=== PATIENT | female | born 1960 | race Caucasian/White ===

== ENCOUNTER 2017-07-26 09:07 | Inpatient (IN) | payer OTHER ==
[2017-07-26] VITALS (18 sets, daily range): BP systolic 90–146; BP diastolic 46–69; PULSE 75–88; RESP 12–28; Ht 167.6 cm; Wt 110.0 kg
[~2017-07-26] VITALS: Ht 167.6 cm; Wt 110.0 kg
[~2017-07-26 09:07] MED LIST: ACETAMINOPHEN 1000 MG/100 ML IVPB ONE; CEFAZOLIN 1 GM INJ ONE; DIPHENHYDRAMINE 50 MG INJ IV PRN; EPHEDrine SULFATE 50 MG/5 ML SYG ONE; FENTAnyl 50 MCG/ML VIAL IV PRN; HYDROmorphONE (0.2 MG/ML) 10ML SYG IV PRN; MEPERIDINE 25 MG INJ IV PRN; ONDANSETRON 4 MG INJ IV PRN; PROCHLORPERAZINE 10 MG INJ IV PRN; PROPOFOL 200 MG INJ ONE
[2017-07-26] MEDS ORDERED: ASPI81TA3 PO (10:23)
[2017-07-26] MEDS ORDERED: DEXT30DR5 BOTH EYES (10:23)
[2017-07-26] MEDS ORDERED: ATOR20TA38 PO (10:24)
[2017-07-26] MEDS ORDERED: BACL10TA PO (10:24)
[2017-07-26] MEDS ORDERED: BENZ0.5T3 PO (10:25)
[2017-07-26] MEDS ORDERED: CARB100T2 PO (10:26)
[2017-07-26] MEDS ORDERED: DIVA500T7 PO (10:27)
[2017-07-26] MEDS ORDERED: DOCU250C58 PO (10:27)
[2017-07-26] MEDS ORDERED: IPRA3AMP INHALATION (10:28)
[2017-07-26] MEDS ORDERED: IBUP-1542 PO (10:29)
[2017-07-26] MEDS ORDERED: VENL150C PO (10:29)
[2017-07-26] MEDS ORDERED: LACTINEX PO (10:30)
[2017-07-26] MEDS ORDERED: LEVO75TA5 PO (10:41)
[2017-07-26] MEDS ORDERED: LACT20SO2 PO (10:41)
[2017-07-26] MEDS ORDERED: MAGN400O4 PO (10:42)
[2017-07-26] MEDS ORDERED: LOSA100T7 PO (10:42)
[2017-07-26] MEDS ORDERED: PANT40TA4 PO (10:42)
[2017-07-26] MEDS ORDERED: OXYC-209 PO (10:43)
[2017-07-26] MEDS ORDERED: MIRT45TA PO (10:44)
[2017-07-26] MEDS ORDERED: UDROBDM PO (10:44)
[2017-07-26] MEDS ORDERED: QUET400T PO (10:46)
[2017-07-26] MEDS ORDERED: MONT10TA21 PO (10:46)
[2017-07-26] MEDS ORDERED: SODI1TAB2 PO (10:47)
[2017-07-26] MEDS ORDERED: ACET-2047 PO (10:47)
[2017-07-26 10:56] LABS: BASOPHILS % 0.4 % (0.0-2.0); EOSINOPHILS # 0.2 10^3/ul (0.0-0.5); EOSINOPHILS % 2.2 % (0.0-7.0); HEMATOCRIT 35.3 % (37.0-47.0); HEMOGLOBIN 11.9 g/dl (12.0-16.0); LYMPHOCYTES # 2.4 10^3/ul (0.8-2.9); LYMPHOCYTES % 30.4 % (15.0-51.0); MEAN CORPUSCULAR HEMOGLOBIN 33.1 pg (29.0-33.0); MEAN CORPUSCULAR HGB CONC 33.7 g/dl (32.0-37.0); MEAN CORPUSCULAR VOLUME 98.1 fl (82.0-101.0); MEAN PLATELET VOLUME 9.8 fl (7.4-10.4); MONOCYTE # 0.6 10^3/ul (0.3-0.9); MONOCYTES % 8.2 % (0.0-11.0); NEUTROPHILS % 58.4 % (39.0-77.0); PLATELET COUNT 170 10^3/UL (140-415); RED CELL DISTRIBUTION WIDTH 12.9 % (11.5-14.5); WHITE BLOOD COUNT 7.8 10^3/ul (4.8-10.8)
[2017-07-26] MEDS ORDERED: GELATIN SIZE 100 SPONGE ONE (11:24)
[2017-07-26] MEDS ORDERED: THROMBIN 5000 UNIT VIAL ONE (11:24)
[2017-07-26 11:27] LABS: CALCIUM 9.1 mg/dl (8.4-10.2); CREATININE 0.64 mg/dl (0.44-1.00); POTASSIUM 4.6 mmol/L (3.5-5.1)
[2017-07-26 11:44] LABS: INR 0.94; PROTIME 12.6 Sec (12.2-14.2)
[2017-07-26 11:46] LABS: PARTIAL THROMBOPLASTIN TIME 36.6 Sec (25.0-35.0)
[2017-07-26] MEDS ORDERED: LIDOCAINE 2% (SDV) 5 ML INJ ONE (12:04)
[2017-07-26] MEDS ORDERED: PROPOFOL 20 ML ONE (12:04)
[2017-07-26] MEDS ORDERED: FENTAnyl 50 MCG/ML VIAL ONE ×2 (12:05→16:24)
[2017-07-26] MEDS ORDERED: MIDAZOLAM 1 MG/ML 2 ML INJ ONE (12:05)
[2017-07-26] MEDS ORDERED: ROCURONIUM 50 MG INJ ONE ×2 (12:05→14:29)
[2017-07-26] MEDS ORDERED: OCULAR LUBRICANT 3.5 GM OPH OINT ONE (12:10)
[2017-07-26] MEDS ORDERED: PROVENTIL HFA 6.7GM INHALER ONE (12:10)
[2017-07-26] MEDS ORDERED: HEPARIN 1000 UNITS/ML 10 ML INJ ONE (13:13)
[2017-07-26] MEDS ORDERED: NALOXONE (0.4 MG/ML) INJ IV PRN (14:00)
[2017-07-26] MEDS ORDERED: NACL 0.9% 3 ML SYG IV SCH (14:00)
--- NOTE | 2017-07-26 14:00 | OPPN ---
Date/Time of Note Date/Time of Note DATE: 07/26/17 TIME: 1600 Operative Report Free Text/Dictation Pls see Dr. Marte's post op note Preoperative Diagnosis Mechanical Low Back pain with Radiculopathy Postoperative Diagnosis Same STEPHEN FRANCO MD Jul 26, 2017 14:00
[2017-07-26] MEDS ORDERED: LABETALOL HCL 20MG INJ ONE (14:24)
[2017-07-26] MEDS ORDERED: HYDROmorphONE 2 MG/ML SYG ONE (14:27)
[2017-07-26] MEDS ORDERED: CEFAZOLIN 1 GM INJ ONE (14:37)
[2017-07-26] MEDS ORDERED: KETAMINE 500 MG INJ ONE (14:37)
[2017-07-26] MEDS ORDERED: ONDANSETRON 4 MG INJ ONE (14:43)
[2017-07-26] MEDS ORDERED: DEXAMETHASONE 4 MG/ML 1 ML INJ ONE (14:43)
[2017-07-26] MEDS ORDERED: hydrALAzine 20 MG INJ ONE (14:45)
[2017-07-26] MEDS ORDERED: CEFAZOLIN 1 GM INJ ZFS ONE (14:47)
[2017-07-26] MEDS ORDERED: GELATIN SIZE 100 SPONGE TOP ONE (14:48)
[2017-07-26] MEDS ORDERED: THROMBIN 5000 UNIT VIAL TOP ONE (14:50)
[2017-07-26] MEDS ORDERED: HEMOSTATIC MATRIX/ THROMBIN 1 EA SYG ZFS ONE (14:52)
[2017-07-26] MEDS ORDERED: PHENYLephrine (100 MCG/ML) 5ML SYG ONE (15:32)
[2017-07-26] MEDS ORDERED: SUGAMMADEX SODIUM 200 MG/2 ML VIAL IV ONE (15:54)
[2017-07-26] MEDS ORDERED: BUPIVACAINE 0.25% (MPF) 30 ML INJ ONE (15:56)
--- NOTE | 2017-07-26 16:26 | RADRPT ---
PROCEDURE: Lumbar spine single view CLINICAL INDICATION: Intraoperative evaluation for foreign body TECHNIQUE: Single portable AP supine exposure of the lumbar spine is submitted for review COMPARISON: None available FINDINGS: The image is somewhat limited by technical factors and underexposure. Mild scoliotic curvature to t he left centered at the L3-4 level is present with degenerative disk narrowing and spondylosis at L3 -4, L4-5 and L5-S1. Tiny staple like densities project over the sacrum but there is no evidence of obvious additional radiopaque foreign body. Bowel gas pattern is grossly unremarkable. RPTAT:HJJR IMPRESSION: Limited portable intraoperative single lumbar spine image does not demonstrate obvious retained radi opaque foreign body. Physician Zoltan Date Time Electronically viewed and signed by Physician Zoltan on 07/26/2017 16:25 /
[2017-07-26] MEDS: HYDROmorphONE 0.2 MG/ML PCA IV SCH ×2 (17:04→23:14)
[2017-07-26] MEDS ORDERED: BUPIVACAINE 0.25% (MPF) 10 ML 10 ML VIAL INJ ONE (17:16)
[2017-07-26] MEDS: HYDROmorphONE (0.2 MG/ML) 10ML SYG IV PRN ×3 (17:32→18:02)
[2017-07-26] MEDS ORDERED: CEFAZOLIN 1 GM/50 ML (PMX) 50 ML IVPB SCH (18:00)
[2017-07-26] MEDS: NS + KCL 20 MEQ 1,000 ML IV SCH (18:58)
[2017-07-26] MEDS: MONTELUKAST 10 MG TAB PO SCH (21:11)
[2017-07-26] MEDS: CEFAZOLIN 1 GM/50 ML (PMX) 50 ML IVPB SCH (21:11)
[2017-07-26] MEDS: CARBAMAZEPINE 200 MG TAB PO SCH (22:11)
[2017-07-26] MEDS: DIVALPROEX (EC) 500 MG TAB PO SCH (22:11)
[2017-07-26] MEDS: QUETIAPINE 100 MG TAB PO SCH (23:04)
[2017-07-26] MEDS: MIRTAZAPINE 15 MG TAB PO SCH (23:05)
[2017-07-27] MEDS: CEFAZOLIN 1 GM/50 ML (PMX) 50 ML IVPB SCH ×3 (02:10→14:07)
--- NOTE | 2017-07-27 03:07 | HP ---
DATE OF ADMISSION: 07/26/2017 HISTORY OF PRESENT ILLNESS: The patient is a 57-year-old female with obesity, hyperlipidemia, COPD, hypothyroidism, morbid obesity, seizure disorder, depression , anxiety, osteoarthritis, and GERD. The patient presented with lower back pain with radiculopathy and was evaluated by Dr. Zaldivar in surgical consultation. The patient was brought to the hospital and underwent surgery with attempt at anterior approach of lumbar fusion which was not possible due to multiple adhesions. Patient underwent retroperitoneal dissection of lymph node with biopsy. Postoperatively, patient experienced significant pain, and patient will be admitted for further evaluation and management. PAST MEDICAL HISTORY: Per HPI. PAST SURGICAL HISTORY: Status post lumbar dissection in 1996. FAMILY HISTORY: Noncontributory. SOCIAL HISTORY: The patient stated that she smokes E cigarettes. The patient denies any alcohol use. Denies any illicit drug use. ALLERGIES: NO KNOWN ALLERGIES. MEDICATIONS: Includes: 1. Tylenol. 2. Aspirin. 3. Lipitor. 4. Baclofen. 5. Benztropine. 6. Mesylate. 7. Carbamazepine. 8. Depakote. 9. Colace. 10. Ibuprofen. 11. Ipratropium. 12. Albuterol. 13. Lactulose. 14. Levothyroxine. 15. Cozaar. 16. Remeron. 17. Singular. 18. Protonix. 19. Seroquel. 20. Sodium chloride. 21. Effexor. REVIEW OF SYSTEMS: Twelve point review of system is negative other than mentioned in HPI. PHYSICAL EXAMINATION: GENERAL: Well developed, obese female, currently is awake, alert. VITAL SIGNS: Temperature is 98.0, pulse 75, blood pressure 146/63, respiratory rate 18, oxygen saturation 98 percent on 3 L nasal cannula. HEENT: Head is atraumatic, normocephalic. Pupils are equal, round, and reactive to light and accommodation. Oral mucosa is pink and moist. NECK: Supple. No cervical lymphadenopathy. No thyromegaly. CHEST: Lungs are clear bilaterally. There are no rhonchi, wheezes, or rales noted. CARDIOVASCULAR: Normal S1, S2. No murmurs, gallops, clicks, or murmurs. ABDOMEN: Protuberant, soft. The patient has a surgical incision with intact dressing. GENITOURINARY: The patient has a Dee catheter. EXTREMITIES: No edema, clubbing, or cyanosis. Pulses are equal bilaterally, 2+. SKIN: No rash. No petechiae noted. NEUROLOGICAL: The patient is awake, alert, and oriented x4. No focal deficits noted. Motor strength is 5/5 in all extremities. LABORATORY DATA: On admission, CBC: White blood cells 7.8, hemoglobin 11.9, hematocrit 35.3, platelets 170. Chemistry: Sodium 142, potassium 4.6, chloride 102, carbon dioxide 28, anion gap 7, BUN 17, creatinine 0.6, glucose 105, calcium 9.1. ASSESSMENT/PLAN: 1. Retroperitoneal dissection with lymph node biopsy. Continue postoperative antibiotics. Follow surgical recommendations. Will continue [place] and Dilaudid for pain. Zofran p.r.n. for nausea. 2. Chronic obstructive pulmonary disease. Will continue breathing treatment. 3. Hypothyroidism. Continue Synthroid. 4. Hyperlipidemia. Continue statin. 5. Morbid obesity with BMI of 39. 6. Osteoarthritis. Continue sequential compression devices for deep venous thrombosis prophylaxis and Pepcid for peptic ulcer disease prophylaxis. Further recommendations will be based on clinical course. Plan of care discussed with Dr. White. Dictated By: Dee Palafox NP /fab/maria teresa /Document#: [id number] SEAN
--- NOTE | 2017-07-27 03:39 | CONS ---
DATE OF ADMISSION: 07/26/2017 DATE OF CONSULTATION: 07/26/2017 REASON FOR CONSULTATION: Evaluation for spine exposure. Thank you, Dr. Zaldivar for asking me to see this patient. CHIEF COMPLAINT: This is a 57-year-old female, who was admitted to undergo an anterior retroperitoneal exposure, interbody fusion of lumbar sacral spine. PAST MEDICAL HISTORY: Hypertension, hyperlipidemia, degenerative disc disease lumbosacral spine, obesity, prior abdominal tumor. PAST SURGICAL HISTORY: Laparoscopy and tumor biopsy. ALLERGIES: NONE. SOCIAL HISTORY: No smoking, drinking, or drug use. MEDICATION: List reviewed. PHYSICAL EXAMINATION: VITAL SIGNS: Blood pressure is 136/60, pulse is 80, respirations 18. HEART: Regular rate and rhythm. LUNGS: Clear. ABDOMEN: Obese, nontender, and distended. Multiple rated as small laparoscopic incisions were noted. IMPRESSION: Degenerative disk disease, lumbosacral spine. RECOMMENDATIONS: We will proceed with anterior-superior interbody fusion of the retroperitoneal spine. Risks, complications, alternative therapies explained to the patient. All questions answered. Risks and benefits that have been explained to the patient included, but not limited to, bleeding, infection, damage to bowels, damage to ureters, DVT, PE, loss of limb, loss of life, possible history of wound infection, wound dehiscence, inability to do the surgery, and others. All questions answered. Dictated By: Too Julien MD /fab/nahum /Document#: [id number]
--- NOTE | 2017-07-27 04:43 | OPR ---
DATE OF OPERATION: 07/26/2017 PREOPERATIVE DIAGNOSIS: History of degenerative disk and spine disease. POSTOPERATIVE DIAGNOSIS: History of degenerative disk and spine disease. OPERATION PERFORMED: 1. Anterior retroperitoneal exposure of retroperitoneal spine. 2. Retroperitoneal lymph node biopsy. This was a very difficult operation secondary to obesity and scar tissue. SURGEON: Dr. Hawk. CROP QUANTITATIVE GENETICIST: Dr. Zaldivar. Risks, benefits, complications, alternative therapies, high-risk nature of the operation fully explained to the patient, consent obtained. Risks and benefits that have explained to the patient included, but limited to bleeding and infection, damage to bowels, damage to ureters, wound infection, wound dehiscence, loss of limb, loss of life, and others. OPERATIVE PROCEDURE: Patient was placed in supine position. Prepped and draped in usual sterile fashion. Time-out was called. Antibiotics were given. We made a 15 cm incision, left lower quadrant, to left of the umbilicus. Incision was taken down to subcutaneous tissue, which was then opened using electrocautery. Left anterior rectus sheath was opened in the direction of the wound. Retroperitoneal space was entered. Bookwalter retractor was placed, retracting the bowel contents to the right, rectus muscle to the left. We proceeded with the dissection of the left iliac artery and vein and aorta. Large amount of lymph nodes were noted, which were then biopsied. The patient also has severe amount of adhesions. The dissection was very difficult. After going through, through a period of dissecting the artery and the vein and trying to separate the artery and the vein from the bone, a discussion happened between myself and Dr. Zaldivar and we decided to stop and proceed with a fusion from a lateral or posterior approach. All needle counts and sponge counts were correct. The wound was irrigated using antibiotic solution. The posterior rectus sheath was closed using 0 Vicryl suture in a running fashion. Anterior rectus sheath was closed using #1 Vicryl suture in a running fashion with some interrupted sutures in the middle. The wound was irrigated and closed in 2 layers of 3-0 Vicryl suture in a running subcuticular skin closure. Patient tolerated procedure well. Dictated By: Too Julien MD /fab/nahum /Document#: [id number]
[2017-07-27 05:34] LABS: BASOPHILS % 0.3 % (0.0-2.0); EOSINOPHILS # 0.1 10^3/ul (0.0-0.5); EOSINOPHILS % 0.8 % (0.0-7.0); HEMATOCRIT 33.5 % (37.0-47.0); HEMOGLOBIN 10.7 g/dl (12.0-16.0); LYMPHOCYTES # 2.1 10^3/ul (0.8-2.9); LYMPHOCYTES % 26.3 % (15.0-51.0); MEAN CORPUSCULAR HEMOGLOBIN 31.8 pg (29.0-33.0); MEAN CORPUSCULAR HGB CONC 31.9 g/dl (32.0-37.0); MEAN CORPUSCULAR VOLUME 99.4 fl (82.0-101.0); MEAN PLATELET VOLUME 10.4 fl (7.4-10.4); MONOCYTE # 0.6 10^3/ul (0.3-0.9); MONOCYTES % 7.7 % (0.0-11.0); NEUTROPHILS % 64.6 % (39.0-77.0); PLATELET COUNT 156 10^3/UL (140-415); RED BLOOD COUNT 3.37 10^6/ul (4.20-5.40); RED CELL DISTRIBUTION WIDTH 13.2 % (11.5-14.5); WHITE BLOOD COUNT 7.9 10^3/ul (4.8-10.8)
[2017-07-27] MEDS: NS + KCL 20 MEQ 1,000 ML IV SCH ×4 (05:36→20:00)
[2017-07-27 05:37] VITALS: BP 139/60; PULSE 95; RESP 19
[2017-07-27 06:05] LABS: CALCIUM 8.1 mg/dl (8.4-10.2); CREATININE 0.56 mg/dl (0.44-1.00); POTASSIUM 4.4 mmol/L (3.5-5.1)
[2017-07-27] MEDS: PANTOPRAZOLE (EC) 40 MG TAB PO SCH (06:53)
[2017-07-27] MEDS: LEVOTHYROXINE 75 MCG TAB PO SCH (06:53)
[2017-07-27 08:00] VITALS: BP 112/60; RESP 19
[2017-07-27] MEDS: DOCUSATE SODIUM 100 MG CAP PO SCH ×2 (08:32→20:39)
[2017-07-27] MEDS: DIVALPROEX (EC) 500 MG TAB PO SCH ×3 (08:32→20:39)
[2017-07-27] MEDS: CARBAMAZEPINE 200 MG TAB PO SCH ×4 (08:32→20:40)
[2017-07-27] MEDS: HYDROmorphONE 0.2 MG/ML PCA IV SCH ×3 (08:38→20:44)
[2017-07-27 12:39] VITALS: BP 109/57; RESP 19
--- NOTE | 2017-07-27 17:53 | PN ---
Date/Time of Note Date/Time of Note DATE: 07/27/17 TIME: 17:41 Assessment/Plan VTE Prophylaxis VTE Prophylaxis Intervention: SCD's Lines/Catheters IV Catheter Type (from Nrsg): Peripheral IV Central line still needed: Yes Urinary Cath still in place: Yes Reason Cath still needed: urinary retention Assessment/Plan Chief Complaint/Hosp Course Patient's complains of abdominal pain, currently using SPECIAL POLICE OFFICER Dilaudid for pain control, as any nausea vomiting tolerates clear liquid diet well. Problems: Assessment/Plan - Degenerative disk narrowing and spondylosis at L3-4, L4-5 and L5-S1 with radiculopathy. Plan for a lumbar partial fusion of L2-S1 tomorrow. Keep n.p.o. starting midnight. - S/p anterior retroperitoneal exposure and retroperitoneal dissection with lymph node biopsy. Continue SPECIAL POLICE OFFICER Dilaudid for pain. Zofran p.r.n. for nausea. - Chronic obstructive pulmonary disease. Continue breathing treatment. - Hypothyroidism. Continue Synthroid. - Hyperlipidemia. Continue statin. - Seizure disorder, continue Depakote and Tegretol. - Morbid obesity with BMI of 39. - Osteoarthritis. - Psychiatric disorder Recommendations based on clinical course. Care discussed with Dr. White. Exam/Review of Systems Vital Signs Vitals Vital Signs Date Time Temp Pulse Resp B/P Pulse Ox O2 Delivery O2 Flow Rate FiO2 07/27/17 17:00 18 07/27/17 12:39 98.2 91 109/57 94 07/27/17 08:00 Nasal Cannula 2.0 Intake and Output 07/26/17 07/26/17 07/27/17 15:00 23:00 07:00 Intake Total 1000 ml 400 ml Output Total 300 ml 1500 ml Balance 700 ml -1100 ml Exam Constitutional: alert, oriented Head: normocephalic Neck: supple Respiratory: normal air movement Cardiovascular: nl pulses Gastrointestinal: other (Status post surgery), soft, tender Extremities: normal pulses Results Result Diagram: 07/27/17 0432 07/27/17 0432 Results 24 hrs Laboratory Tests Test 07/27/17 04:32 White Blood Count 7.9 Red Blood Count 3.37 L Hemoglobin 10.7 L Hematocrit 33.5 L Mean Corpuscular Volume 99.4 Mean Corpuscular Hemoglobin 31.8 Mean Corpuscular Hemoglobin Concent 31.9 L Red Cell Distribution Width 13.2 Platelet Count 156 Mean Platelet Volume 10.4 Neutrophils % 64.6 Lymphocytes % 26.3 Monocytes % 7.7 Eosinophils % 0.8 Basophils % 0.3 Nucleated Red Blood Cells % 0.0 Neutrophils # (Manual) 5.1 Lymphocytes # 2.1 Monocytes # 0.6 Eosinophils # 0.1 Basophils # 0.0 Nucleated Red Blood Cells # 0.0 Sodium Level 139 Potassium Level 4.4 Chloride Level 102 Carbon Dioxide Level 25 Anion Gap 16 Blood Urea Nitrogen 12 Creatinine 0.56 Glucose Level 101 Calcium Level 8.1 L Medications Medications Current Medications Acetaminophen/ Hydrocodone Bitart ([place] (5/325)) 1 tab Q4H PRN PO PAIN LEVEL 1 -5; Start 07/26/17 at 14:00 Docusate Sodium (Colace) 100 mg BID PO Last administered on 07/27/17 08:32; Admin Dose 100 MG; Start 07/27/17 at 09:00 Hydromorphone HCl (Dilaudid SPECIAL POLICE OFFICER) Q4PCA IV Last administered on 07/27/17 15:54 ; Admin Dose 6 MG; Start 07/26/17 at 14:00 Naloxone HCl 0.2 mg 0.2 mg Q2M PRN IV RR 8 BREATHS/MIN OR LESS; Start 07/26/17 at 14:00 Potassium Chloride/Sodium Chloride (NS-KCl 20 Meq) 1,000 ml @ 100 mls/hr Q10H IV Last administered on 07/27/17 17:12; Admin Dose 100 MLS/HR; Start 07/26/17 at 14:00 Carbamazepine (Tegretol) 200 mg QID PO Last administered on 07/27/17 17:12; Admin Dose 200 MG; Start 07/26/17 at 21:00 Divalproex Sodium (Depakote) 500 mg TID PO Last administered on 07/27/17 12:46 ; Admin Dose 500 MG; Start 07/26/17 at 21:00 Montelukast Sodium (Singulair) 10 mg QHS PO Last administered on 07/26/17 21: 11; Admin Dose 10 MG; Start 07/26/17 at 21:00 Quetiapine Fumarate (Seroquel) 800 mg HS PO Last administered on 07/26/17 23: 04; Admin Dose 800 MG; Start 07/26/17 at 22:00 Mirtazapine (Remeron) 45 mg HS PO Last administered on 07/26/17t 23:05; Admin Dose 45 MG; Start 07/26/17 at 22:00 AMERICO BRIZUELA Jul 27, 2017 17:52
[2017-07-27 19:38] VITALS: BP 114/55; PULSE 88; RESP 18
[2017-07-27] MEDS: MIRTAZAPINE 15 MG TAB PO SCH (20:39)
[2017-07-27] MEDS: QUETIAPINE 100 MG TAB PO SCH (20:40)
[2017-07-27] MEDS: MONTELUKAST 10 MG TAB PO SCH (20:40)
[2017-07-27] MEDS ORDERED: QUETIAPINE 100 MG TAB PO SCH (21:00)
[2017-07-27] MEDS ORDERED: MIRTAZAPINE 15 MG TAB PO SCH (21:00)
[2017-07-28] VITALS (18 sets, daily range): BP systolic 104–166; BP diastolic 55–81; PULSE 96–110; RESP 15–29
[2017-07-28] MEDS: NS + KCL 20 MEQ 1,000 ML IV SCH ×3 (03:38→22:22)
[2017-07-28 05:29] LABS: BASOPHILS % 0.2 % (0.0-2.0); EOSINOPHILS # 0.2 10^3/ul (0.0-0.5); EOSINOPHILS % 1.5 % (0.0-7.0); HEMATOCRIT 32.2 % (37.0-47.0); HEMOGLOBIN 10.6 g/dl (12.0-16.0); LYMPHOCYTES # 1.6 10^3/ul (0.8-2.9); LYMPHOCYTES % 14.4 % (15.0-51.0); MEAN CORPUSCULAR HEMOGLOBIN 32.6 pg (29.0-33.0); MEAN CORPUSCULAR HGB CONC 32.9 g/dl (32.0-37.0); MEAN CORPUSCULAR VOLUME 99.1 fl (82.0-101.0); MEAN PLATELET VOLUME 10.1 fl (7.4-10.4); MONOCYTE # 1.2 10^3/ul (0.3-0.9); MONOCYTES % 10.7 % (0.0-11.0); NEUTROPHILS % 72.7 % (39.0-77.0); PLATELET COUNT 165 10^3/UL (140-415); RED BLOOD COUNT 3.25 10^6/ul (4.20-5.40); RED CELL DISTRIBUTION WIDTH 13.2 % (11.5-14.5); WHITE BLOOD COUNT 10.8 10^3/ul (4.8-10.8)
[2017-07-28 05:45] LABS: CALCIUM 8.5 mg/dl (8.4-10.2); CREATININE 0.61 mg/dl (0.44-1.00); POTASSIUM 4.3 mmol/L (3.5-5.1)
[2017-07-28] MEDS: HYDROmorphONE 0.2 MG/ML PCA IV SCH ×3 (05:58→20:41)
[2017-07-28] MEDS: LEVOTHYROXINE 75 MCG TAB PO SCH (07:00)
[2017-07-28] MEDS: PANTOPRAZOLE (EC) 40 MG TAB PO SCH (07:20)
--- NOTE | 2017-07-28 07:50 | RADRPT ---
PROCEDURE: CT L-Spine. CLINICAL INDICATION: Back pain ; postop TECHNIQUE: A CT of the lumbar spine was performed on a multidetector CT scanner utilizing axial im ages from the thoracic lumbar junction through the lumbar sacral junction. Sagittal and coronal ref ormatted images were made. The CTDIvol is 48mGy and the DLP is 1341mGycm. One or more of the followi ng dose reduction techniques were used: Automated exposure control, Adjustment of the mA and/or kV a ccording to patient size, and/or use of iterative reconstruction technique. COMPARISON: Lumbar spine x-ray x-ray FINDINGS: Lumbar levoscoliosis with apex at L3. Solid interbody fusion L4-5. No evidence of an acute lumbar vertebral compression fracture. L1-2: Mild disk height loss posteriorly. Small circumferential disk bulge and facet arthropathy. N o significant bony spinal canal or bony foraminal narrowing. L2-3: Moderate right-sided disk height loss. A right central to right foraminal disk osteophyte and facet arthropathy efface the right lateral recess and cause moderate right foraminal stenosis. The re is mild spinal canal narrowing. L3-4: Severe right-sided disk height loss. A large circumferential disk osteophyte complex results in moderate to severe right foraminal stenosis. There is moderate bony spinal canal narrowing. Dev eloping posterolateral fusion of the facets, right greater than left. L4-5: Solid interbody fusion identified. Posterolateral fusion of the facets seen. Moderate to sev ere left and moderate right bony foraminal narrowing. Posterior osseous ridge without significant b joe spinal canal narrowing. L5-1: Grade 1 retrolisthesis with severe disk height loss. Broad disk osteophyte complex and forami nal disk osteophytes are seen. Severe bilateral foraminal stenosis without bony spinal canal narrow ing. Bilateral facet arthropathy. Surgical clips and inflammatory changes and small foci of air are seen adjacent to the aorta at the L4-5 level presumably related to recent surgery. Aortoiliac atherosclerosis. IMPRESSION: Lumbar levoscoliosis with apex at L3. No acute compression fracture. Solid interbody fusion L4-5. Severe discogenic disease L3-4 and L5-S1. Moderates bony spinal canal narrowing L3-4. Foraminal narrowings are detailed in the findings. RPTAT: AA .Dilshad Johnson MD, MD Date Time Electronically viewed and signed by .Dilshad Johnson MD, MD on 07/28/2017 07:50 .T/
--- NOTE | 2017-07-28 08:15 | PN ---
Date/Time of Note Date/Time of Note DATE: 07/28/17 TIME: 08:13 Assessment/Plan VTE Prophylaxis VTE Prophylaxis Intervention: SCD's Lines/Catheters IV Catheter Type (from Nrsg): Peripheral IV Urinary Cath still in place: Yes Subjective 24 Hr Interval Summary Free Text/Dictation S: NAD HH stable Exam/Review of Systems Vital Signs Vitals Vital Signs Date Time Temp Pulse Resp B/P Pulse Ox O2 Delivery O2 Flow Rate FiO2 07/28/17 08:02 98.6 97 19 126/61 96 07/27/17 22:01 Nasal Cannula 2.0 Intake and Output 07/27/17 07/27/17 07/28/17 15:00 23:00 07:00 Intake Total 100 ml 2650 ml 1870 ml Output Total 1250 ml 1200 ml Balance 100 ml 1400 ml 670 ml Exam Additional Comments MS: [id number] CN: FRANCHESKA M: FC x 4 , S: grossly intact Results Result Diagram: 07/28/17 0432 07/28/17 0432 Results 24 hrs Laboratory Tests Test 07/28/17 04:32 White Blood Count 10.8 # Red Blood Count 3.25 L Hemoglobin 10.6 L Hematocrit 32.2 L Mean Corpuscular Volume 99.1 Mean Corpuscular Hemoglobin 32.6 Mean Corpuscular Hemoglobin Concent 32.9 Red Cell Distribution Width 13.2 Platelet Count 165 Mean Platelet Volume 10.1 Neutrophils % 72.7 Lymphocytes % 14.4 L Monocytes % 10.7 Eosinophils % 1.5 Basophils % 0.2 Nucleated Red Blood Cells % 0.0 Neutrophils # (Manual) 7.9 H Lymphocytes # 1.6 Monocytes # 1.2 H Eosinophils # 0.2 Basophils # 0.0 Nucleated Red Blood Cells # 0.0 Sodium Level 137 Potassium Level 4.3 Chloride Level 99 Carbon Dioxide Level 27 Anion Gap 15 Blood Urea Nitrogen 6 L Creatinine 0.61 Glucose Level 121 Calcium Level 8.5 Medications Medications Current Medications Acetaminophen/ Hydrocodone Bitart ([place] (5/325)) 1 tab Q4H PRN PO PAIN LEVEL 1 -5; Start 07/26/17 at 14:00 Docusate Sodium (Colace) 100 mg BID PO Last administered on 07/27/17t 20:39; Admin Dose 100 MG; Start 07/27/17 at 09:00 Hydromorphone HCl (Dilaudid CASHIER AND SALESPERSON) Q4PCA IV Last administered on 07/28/17 05:58 ; Admin Dose 6 MG; Start 07/26/17 at 14:00 Naloxone HCl 0.2 mg 0.2 mg Q2M PRN IV RR 8 BREATHS/MIN OR LESS; Start 07/26/17 at 14:00 Potassium Chloride/Sodium Chloride (NS-KCl 20 Meq) 1,000 ml @ 100 mls/hr Q10H IV Last administered on 07/28/17 03:38; Admin Dose 100 MLS/HR; Start 07/26/17 at 14:00 Carbamazepine (Tegretol) 200 mg QID PO Last administered on 07/27/17 20:40; Admin Dose 200 MG; Start 07/26/17 at 21:00 Divalproex Sodium (Depakote) 500 mg TID PO Last administered on 07/27/17 20:39 ; Admin Dose 500 MG; Start 07/26/17 at 21:00 Montelukast Sodium (Singulair) 10 mg QHS PO Last administered on 07/27/17 20: 40; Admin Dose 10 MG; Start 07/26/17 at 21:00 Quetiapine Fumarate (Seroquel) 800 mg HS PO Last administered on 07/27/17 20: 40; Admin Dose 800 MG; Start 07/26/17 at 22:00 Mirtazapine (Remeron) 45 mg HS PO Last administered on 07/27/17 20:39; Admin Dose 45 MG; Start 07/26/17 at 22:00 STEPHEN FRANCO MD Jul 28, 2017 08:15
[2017-07-28] MEDS: DOCUSATE SODIUM 100 MG CAP PO SCH ×2 (09:00→22:23)
[2017-07-28] MEDS: CARBAMAZEPINE 200 MG TAB PO SCH ×4 (10:04→22:23)
[2017-07-28] MEDS: DIVALPROEX (EC) 500 MG TAB PO SCH ×3 (10:07→22:23)
--- NOTE | 2017-07-28 13:22 | RADRPT ---
Vent Rate: 99 bpm RR Interval: 0 msec VT Interval: 158 msec QRS Duration: 98 msec QT Interval: 356 msec QTC Interval: 456 msec P-R-T [place]: 67 - 50 - 60 degrees Normal sinus rhythm Normal ECG Electronically Signed By: Dalton Yuan [id number]
--- NOTE | 2017-07-28 15:00 | PN ---
Date/Time of Note Date/Time of Note DATE: 07/28/17 TIME: 14:58 Assessment/Plan VTE Prophylaxis VTE Prophylaxis Intervention: SCD's Lines/Catheters IV Catheter Type (from Nrsg): Peripheral IV Urinary Cath still in place: Yes Reason Cath still needed: urinary retention Assessment/Plan Chief Complaint/Hosp Course Patient continues on BENZOL OPERATOR Dilaudid for pain, scheduled for surgery today, remains hemodynamically stable. Assessment/Plan - Degenerative disk narrowing and spondylosis at L3-4, L4-5 and L5-S1 with radiculopathy. Plan for a lumbar partial fusion of L2-S1 today - S/p anterior retroperitoneal exposure and retroperitoneal dissection with lymph node biopsy. Continue BENZOL OPERATOR Dilaudid for pain. Zofran p.r.n. for nausea. - Chronic obstructive pulmonary disease. Continue breathing treatment. - Hypothyroidism. Continue Synthroid. - Hyperlipidemia. Continue statin. - Seizure disorder, continue Depakote and Tegretol. - Morbid obesity with BMI of 39. - Osteoarthritis. - Psychiatric disorder Recommendations based on clinical course. Care discussed with Dr. White. Problems: Exam/Review of Systems Vital Signs Vitals Vital Signs Date Time Temp Pulse Resp B/P Pulse Ox O2 Delivery O2 Flow Rate FiO2 07/28/17 09:00 15 07/28/17 08:02 98.6 97 126/61 96 07/28/17 08:00 2.0 07/27/17 22:01 Nasal Cannula Intake and Output 07/27/17 07/27/17 07/28/17 14:59 22:59 06:59 Intake Total 100 ml 2650 ml 1870 ml Output Total 1250 ml 1200 ml Balance 100 ml 1400 ml 670 ml Exam Constitutional: alert, oriented Head: normocephalic Neck: supple Respiratory: normal air movement Cardiovascular: nl pulses Gastrointestinal: other (Status post surgery), soft, tender Extremities: normal pulses Results Result Diagram: 07/28/17 0432 07/28/17 0432 Results 24 hrs Laboratory Tests Test 07/28/17 04:32 White Blood Count 10.8 # Red Blood Count 3.25 L Hemoglobin 10.6 L Hematocrit 32.2 L Mean Corpuscular Volume 99.1 Mean Corpuscular Hemoglobin 32.6 Mean Corpuscular Hemoglobin Concent 32.9 Red Cell Distribution Width 13.2 Platelet Count 165 Mean Platelet Volume 10.1 Neutrophils % 72.7 Lymphocytes % 14.4 L Monocytes % 10.7 Eosinophils % 1.5 Basophils % 0.2 Nucleated Red Blood Cells % 0.0 Neutrophils # (Manual) 7.9 H Lymphocytes # 1.6 Monocytes # 1.2 H Eosinophils # 0.2 Basophils # 0.0 Nucleated Red Blood Cells # 0.0 Sodium Level 137 Potassium Level 4.3 Chloride Level 99 Carbon Dioxide Level 27 Anion Gap 15 Blood Urea Nitrogen 6 L Creatinine 0.61 Glucose Level 121 Calcium Level 8.5 Medications Medications Current Medications Acetaminophen/ Hydrocodone Bitart ([place] (5/325)) 1 tab Q4H PRN PO PAIN LEVEL 1 -5; Start 07/26/17 at 14:00 Docusate Sodium (Colace) 100 mg BID PO Last administered on 07/27/17 20:39; Admin Dose 100 MG; Start 07/27/17 at 09:00 Hydromorphone HCl (Dilaudid BENZOL OPERATOR) Q4PCA IV Last administered on 07/28/17 12:31 ; Admin Dose 6 MG; Start 07/26/17 at 14:00 Naloxone HCl 0.2 mg 0.2 mg Q2M PRN IV RR 8 BREATHS/MIN OR LESS; Start 07/26/17 at 14:00 Potassium Chloride/Sodium Chloride (NS-KCl 20 Meq) 1,000 ml @ 100 mls/hr Q10H IV Last administered on 07/28/17 03:38; Admin Dose 100 MLS/HR; Start 07/26/17 at 14:00 Carbamazepine (Tegretol) 200 mg QID PO Last administered on 07/28/17 14:47; Admin Dose 200 MG; Start 07/26/17 at 21:00 Divalproex Sodium (Depakote) 500 mg TID PO Last administered on 07/28/17 14:48 ; Admin Dose 500 MG; Start 07/26/17 at 21:00 Montelukast Sodium (Singulair) 10 mg QHS PO Last administered on 07/27/17 20: 40; Admin Dose 10 MG; Start 07/26/17 at 21:00 Quetiapine Fumarate (Seroquel) 800 mg HS PO Last administered on 07/27/17 20: 40; Admin Dose 800 MG; Start 07/26/17 at 22:00 Mirtazapine (Remeron) 45 mg HS PO Last administered on 07/27/17t 20:39; Admin Dose 45 MG; Start 07/26/17 at 22:00 AMERICO BRIZUELA Jul 28, 2017 15:00
[2017-07-28] MEDS ORDERED: GELATIN SIZE 100 SPONGE ONE (15:06)
[2017-07-28] MEDS ORDERED: THROMBIN 5000 UNIT VIAL ONE (15:06)
[2017-07-28] MEDS ORDERED: HEPARIN 1000 UNITS/ML 10 ML INJ ONE (15:07)
[2017-07-28] MEDS ORDERED: CEFAZOLIN 1 GM INJ ONE (15:14)
[2017-07-28] MEDS ORDERED: SODIUM CL BACTERIOSTATIC 30 ML INJ ONE (15:15)
[2017-07-28] MEDS ORDERED: NEOSTIGMINE 3 MG/3 ML SYRINGE ONE ×2 (16:05→19:14)
[2017-07-28] MEDS ORDERED: PROPOFOL 20 ML ONE (16:05)
[2017-07-28] MEDS ORDERED: MEPERIDINE 100 MG INJ ONE (16:05)
[2017-07-28] MEDS ORDERED: LIDOCAINE 2% (SDV) 5 ML INJ ONE (16:05)
[2017-07-28] MEDS ORDERED: ROCURONIUM 50 MG INJ ONE ×3 (16:05→19:14)
[2017-07-28] MEDS ORDERED: SUCCINYLCHOLINE CHLORIDE 100 MG/5 ML SYG IV ONE (16:05)
[2017-07-28] MEDS ORDERED: GLYCOPYRROLATE 0.4 MG INJ ONE ×3 (16:05→19:14)
[2017-07-28] MEDS ORDERED: LABETALOL HCL 20MG INJ ONE (17:39)
[2017-07-28] MEDS ORDERED: ROPIVACAINE 0.5 % 30 ML VIAL ONE (18:50)
[2017-07-28] MEDS ORDERED: OXYCODONE/ACETAMINOPHEN (5/325) TAB PO PRN ×2 (19:00)
[2017-07-28] MEDS ORDERED: MEPERIDINE 25 MG INJ IV PRN (19:00)
[2017-07-28] MEDS ORDERED: DIPHENHYDRAMINE 50 MG INJ IV PRN (19:00)
[2017-07-28] MEDS ORDERED: MIDAZOLAM 1 MG/ML 2 ML INJ IV PRN (19:00)
[2017-07-28] MEDS ORDERED: FENTAnyl 50 MCG/ML VIAL IV PRN ×3 (19:00)
[2017-07-28] MEDS ORDERED: EPHEDrine SULFATE 50 MG/5 ML SYG IV PRN (19:00)
[2017-07-28] MEDS ORDERED: METOCLOPRAMIDE 10 MG INJ IV PRN (19:00)
[2017-07-28] MEDS ORDERED: hydrALAzine 20 MG INJ IV PRN (19:00)
[2017-07-28] MEDS ORDERED: ONDANSETRON 4 MG INJ IV PRN (19:00)
[2017-07-28] MEDS ORDERED: LABETALOL HCL 20MG INJ IV PRN (19:00)
[2017-07-28] MEDS ORDERED: HYDROmorphONE (0.2 MG/ML) 10ML SYG IV PRN ×3 (19:00)
[2017-07-28] MEDS ORDERED: METOCLOPRAMIDE 10 MG INJ ONE (19:15)
[2017-07-28] MEDS ORDERED: ONDANSETRON 4 MG INJ ONE (19:15)
[2017-07-28] MEDS ORDERED: FENTAnyl 50 MCG/ML VIAL ONE (19:41)
--- NOTE | 2017-07-28 19:47 | OPPN ---
Date/Time of Note Date/Time of Note DATE: 07/28/17 TIME: 19:46 Operative Report Preoperative Diagnosis Mechanical LBP with LE radic Postoperative Diagnosis Same Operation/Procedure Performed L2-S1 /S2 decompression with ISF Estimated blood loss: 150 - 200 ml's Transfusion Required: no Specimen: none Complications: no STEPHEN FRANCO MD Jul 28, 2017 19:47
[2017-07-28] MEDS ORDERED: POLYMYXIN/BACITRACIN 1L IRRIG ONE (20:36)
[2017-07-28] MEDS: MONTELUKAST 10 MG TAB PO SCH (22:23)
[2017-07-28] MEDS: QUETIAPINE 100 MG TAB PO SCH (22:23)
[2017-07-28] MEDS: MIRTAZAPINE 15 MG TAB PO SCH (22:23)
[2017-07-29] VITALS (22 sets, daily range): BP systolic 101–152; BP diastolic 46–78; PULSE 98–120; RESP 16–27
[2017-07-29] MEDS: ACETAMINOPHEN 325 MG TAB PO PRN ×2 (05:57→15:32)
[2017-07-29] MEDS: LEVOTHYROXINE 75 MCG TAB PO SCH (06:00)
[2017-07-29] MEDS: PANTOPRAZOLE (EC) 40 MG TAB PO SCH (06:29)
[2017-07-29 07:17] LABS: BASOPHILS % 0.1 % (0.0-2.0); EOSINOPHILS # 0.1 10^3/ul (0.0-0.5); HEMATOCRIT 24.8 % (37.0-47.0); HEMOGLOBIN 8.3 g/dl (12.0-16.0); LYMPHOCYTES # 1.1 10^3/ul (0.8-2.9); LYMPHOCYTES % 12.3 % (15.0-51.0); MEAN CORPUSCULAR HEMOGLOBIN 32.7 pg (29.0-33.0); MEAN CORPUSCULAR HGB CONC 33.5 g/dl (32.0-37.0); MEAN CORPUSCULAR VOLUME 97.6 fl (82.0-101.0); MEAN PLATELET VOLUME 10.6 fl (7.4-10.4); MONOCYTE # 0.8 10^3/ul (0.3-0.9); MONOCYTES % 8.3 % (0.0-11.0); NEUTROPHILS % 77.9 % (39.0-77.0); PLATELET COUNT 132 10^3/UL (140-415); RED BLOOD COUNT 2.54 10^6/ul (4.20-5.40); WHITE BLOOD COUNT 9.3 10^3/ul (4.8-10.8)
[2017-07-29 07:33] LABS: CALCIUM 8.1 mg/dl (8.4-10.2); CREATININE 0.53 mg/dl (0.44-1.00); POTASSIUM 3.9 mmol/L (3.5-5.1)
--- NOTE | 2017-07-29 08:14 | RADRPT ---
PROCEDURE: CT L-Spine. CLINICAL INDICATION: Back pain postoperative TECHNIQUE: A CT of the lumbar spine was performed on a multidetector CT scanner utilizing axial im ages from the thoracic lumbar junction through the lumbar sacral junction. Sagittal and coronal ref ormatted images were made. The CTDIvol is 78mGy and the DLP is 2276mGycm. One or more of the followi ng dose reduction techniques were used: Automated exposure control, Adjustment of the mA and/or kV a ccording to patient size, and/or use of iterative reconstruction technique. COMPARISON: Lumbar spine CT yesterday FINDINGS: Lumbar levoscoliosis with apex at L3. Solid interbody fusion L4-5. Interval interspinous fusion L1 through the sacrum with lumbar drain seen. Lumbar hardware is intact . No evidence of an acute lumbar vertebral compression fracture. L1-2: Mild disk height loss posteriorly. Small circumferential disk bulge and facet arthropathy. No significant bony spinal canal or bony foraminal narrowing. L2-3: Moderate right-sided disk height loss. A right central to right foraminal disk osteophyte and facet arthropathy efface the right lateral recess and cause moderate right foraminal stenosis. There is mild spinal canal narrowing. L3-4: Severe right-sided disk height loss. A large circumferential disk osteophyte complex results i n moderate to severe right foraminal stenosis. There is moderate bony spinal canal narrowing. Develo ping posterolateral fusion of the facets, right greater than left. L4-5: Solid interbody fusion identified. Posterolateral fusion of the facets seen. Moderate to sever e left and moderate right bony foraminal narrowing. Posterior osseous ridge without significant bony spinal canal narrowing. L5-1: Grade 1 retrolisthesis with severe disk height loss. Broad disk osteophyte complex and foramin al disk osteophytes are seen. Severe bilateral foraminal stenosis without bony spinal canal narrowin g. Bilateral facet arthropathy. Surgical clips and inflammatory changes and small foci of air are seen adjacent to the aorta at the L4-5 level presumably related to recent surgery. Aortoiliac atherosclerosis. IMPRESSION: Interval interspinous fusion L1 through the sacrum with lumbar drain seen. Lumbar hardware is intact . No evidence of an acute lumbar vertebral compression fracture. Lumbar levoscoliosis with apex at L3. Solid interbody fusion L4-5. Multilevel degenerative changes as detailed. RPTAT: AA .Dilshad Johnson MD, MD Date Time Electronically viewed and signed by .Dilshad Johnson MD, MD on 07/29/2017 08:14 .T/
--- NOTE | 2017-07-29 08:29 | RADRPT ---
PROCEDURE: XR fluoro guidance CLINICAL INDICATION: Lumbar spine surgery TECHNIQUE: Intraoperative fluoroscopy performed. 2 images submitted. Total fluoro time 16 second s. COMPARISON: CT lumbar spine 07/27/2017 FINDINGS: Interspinous fusion hardware present at the approximately L1-2 through sacral levels. See operative report for details. IMPRESSION: Fluoroscopic guidance for lumbar spine surgery. RPTAT: VV .Josef Whitt MD, Date Time Electronically viewed and signed by .Josef Whitt MD, on 07/29/2017 08:28 .O/
[2017-07-29] MEDS: NS + KCL 20 MEQ 1,000 ML IV SCH ×2 (08:46→19:23)
[2017-07-29] MEDS: HYDROmorphONE 0.2 MG/ML PCA IV SCH ×2 (08:47→17:44)
[2017-07-29] MEDS ORDERED: SOD CHLORIDE 0.9% 250 ML IV* ONE (09:27)
[2017-07-29] MEDS: DOCUSATE SODIUM 100 MG CAP PO SCH ×2 (10:35→22:35)
[2017-07-29] MEDS: CARBAMAZEPINE 200 MG TAB PO SCH ×4 (10:35→22:35)
[2017-07-29] MEDS: DIVALPROEX (EC) 500 MG TAB PO SCH ×3 (10:35→22:35)
--- NOTE | 2017-07-29 12:00 | PN ---
Date/Time of Note Date/Time of Note DATE: 07/29/17 TIME: 11:57 Assessment/Plan VTE Prophylaxis VTE Prophylaxis Intervention: SCD's Lines/Catheters IV Catheter Type (from Nrsg): Arterial Line Urinary Cath still in place: Yes Reason Cath still needed: other (indicate) (post operative) Assessment/Plan Chief Complaint/Hosp Course S/P lumbar fusion surgery Problems: Assessment/Plan Continue supportive measures, OK to transfer to [facility] surg Exam/Review of Systems Vital Signs Vitals Vital Signs Date Time Temp Pulse Resp B/P Pulse Ox O2 Delivery O2 Flow Rate FiO2 07/29/17 10:00 111 26 117/50 92 Room Air 07/29/17 08:00 100.1 07/29/17 03:00 2.0 Intake and Output 07/28/17 07/28/17 07/29/17 15:00 23:00 07:00 Intake Total 3500 ml 1140 ml Output Total 910 ml 900 ml Balance 2590 ml 240 ml Exam Neurological: SALES FLOOR ASSOCIATE II-XII intact (s/p Lumbar decompression and fusion, motor is better than 4/5 all 4E, no sensory changes), nl mental status Results Result Diagram: 07/29/17 0600 07/29/17 0600 Results 24 hrs Laboratory Tests Test 07/29/17 06:00 White Blood Count 9.3 Red Blood Count 2.54 #L Hemoglobin 8.3 #L Hematocrit 24.8 #L Mean Corpuscular Volume 97.6 Mean Corpuscular Hemoglobin 32.7 Mean Corpuscular Hemoglobin Concent 33.5 Red Cell Distribution Width 13.0 Platelet Count 132 L Mean Platelet Volume 10.6 H Neutrophils % 77.9 H Lymphocytes % 12.3 L Monocytes % 8.3 Eosinophils % 1.0 Basophils % 0.1 Nucleated Red Blood Cells % 0.0 Neutrophils # (Manual) 7.3 Lymphocytes # 1.1 Monocytes # 0.8 Eosinophils # 0.1 Basophils # 0.0 Nucleated Red Blood Cells # 0.0 Sodium Level 136 Potassium Level 3.9 Chloride Level 101 Carbon Dioxide Level 26 Anion Gap 13 Blood Urea Nitrogen 7 Creatinine 0.53 Glucose Level 124 Calcium Level 8.1 L Medications Medications Current Medications Acetaminophen/ Hydrocodone Bitart ([place] (5/325)) 1 tab Q4H PRN PO PAIN LEVEL 1 -5; Start 07/26/17 at 14:00 Docusate Sodium (Colace) 100 mg BID PO Last administered on 07/29/17 10:35; Admin Dose 100 MG; Start 07/27/17 at 09:00 Hydromorphone HCl (Dilaudid SOUND MIXER) Q4PCA IV Last administered on 07/29/17 08:47 ; Admin Dose 6 MG; Start 07/26/17 at 14:00 Naloxone HCl 0.2 mg 0.2 mg Q2M PRN IV RR 8 BREATHS/MIN OR LESS; Start 07/26/17 at 14:00 Potassium Chloride/Sodium Chloride (NS-KCl 20 Meq) 1,000 ml @ 100 mls/hr Q10H IV Last administered on 07/29/17 08:46; Admin Dose 100 MLS/HR; Start 07/26/17 at 14:00 Carbamazepine (Tegretol) 200 mg QID PO Last administered on 07/29/17 10:35; Admin Dose 200 MG; Start 07/26/17 at 21:00 Divalproex Sodium (Depakote) 500 mg TID PO Last administered on 07/29/17 10:35 ; Admin Dose 500 MG; Start 07/26/17 at 21:00 Montelukast Sodium (Singulair) 10 mg QHS PO Last administered on 07/28/17 22: 23; Admin Dose 10 MG; Start 07/26/17 at 21:00 Quetiapine Fumarate (Seroquel) 800 mg HS PO Last administered on 07/28/17 22: 23; Admin Dose 800 MG; Start 07/26/17 at 22:00 Mirtazapine (Remeron) 45 mg HS PO Last administered on 07/28/17 22:23; Admin Dose 45 MG; Start 07/26/17 at 22:00 Acetaminophen (Tylenol Tab) 650 mg Q6H PRN PO PAIN AND OR ELEVATED TEMP Last administered on 07/29/17 05:57; Admin Dose 650 MG; Start 07/29/17 at 06:00 STEPHEN FRANCO MD Jul 29, 2017 12:00
--- NOTE | 2017-07-29 22:04 | PN ---
DATE: 07/29/2017 SUBJECTIVE: Denies any chest pain. The patient's postoperative pain is well controlled. No reported shortness of breath. The patient did have a low-grade temperature, T-max 100.5, no chills. PHYSICAL EXAMINATION: GENERAL: Patient is conscious, awake, alert. VITAL SIGNS: Temperature 100.3, pulse 98, respirations 22, blood pressure 146/68, O2 sat 94 percent room air. HEENT: Conjunctivae is pale. Lids are normal. Oropharynx revealed pale mucosa. NECK: No mass. CHEST: Fairly clear. HEART: Examination is normal. No murmur. ABDOMEN: Nondistended. EXTREMITIES: No leg edema. NEUROLOGIC: The patient is awake, alert, fairly oriented. LABORATORY DATA: Hemoglobin 8.3, dropped from 11.9 on 07/26/2017. Chemistry was unremarkable. IMPRESSION: 1. Anemia due to acute blood loss due to recent surgeries. The patient was seen by , and the patient will receive 2 units of PRBC. 2. Chronic obstructive pulmonary disease. Continue the treatment. 3. Hypothyroidism. Continue Synthroid. 4. Dyslipidemia. Continue statin. 5. Morbid obesity. The patient was advised to lose weight. 6. Bipolar disorder. Stable. Continue Remeron, Seroquel, Depakote, and Tegretol. Dictated By: Brandon White MD /fab/trey /Document#: [id number]
[2017-07-29] MEDS: MONTELUKAST 10 MG TAB PO SCH (22:35)
[2017-07-29] MEDS: QUETIAPINE 100 MG TAB PO SCH (22:35)
[2017-07-29] MEDS: MIRTAZAPINE 15 MG TAB PO SCH (22:35)
[2017-07-30] MEDS: HYDROmorphONE 0.2 MG/ML PCA IV SCH ×3 (00:14→22:00)
[2017-07-30] MEDS ORDERED: KETOROLAC 15 MG INJ IV PRN (00:45)
[2017-07-30] MEDS: PANTOPRAZOLE (EC) 40 MG TAB PO SCH (07:07)
[2017-07-30] MEDS: LEVOTHYROXINE 75 MCG TAB PO SCH (07:07)
[2017-07-30 07:34] VITALS: BP 126/61; RESP 18
[2017-07-30] MEDS: NS + KCL 20 MEQ 1,000 ML IV SCH ×3 (08:00→21:42)
[2017-07-30] MEDS: CARBAMAZEPINE 200 MG TAB PO SCH ×4 (09:00→21:23)
[2017-07-30] MEDS: DIVALPROEX (EC) 500 MG TAB PO SCH ×3 (09:00→21:23)
[2017-07-30] MEDS: DOCUSATE SODIUM 100 MG CAP PO SCH ×2 (09:00→21:22)
[2017-07-30 10:26] LABS: BASOPHILS % 0.1 % (0.0-2.0); EOSINOPHILS # 0.4 10^3/ul (0.0-0.5); EOSINOPHILS % 3.9 % (0.0-7.0); HEMOGLOBIN 10.1 g/dl (12.0-16.0); LYMPHOCYTES % 10.8 % (15.0-51.0); MEAN CORPUSCULAR HEMOGLOBIN 31.9 pg (29.0-33.0); MEAN CORPUSCULAR HGB CONC 33.7 g/dl (32.0-37.0); MEAN CORPUSCULAR VOLUME 94.6 fl (82.0-101.0); MEAN PLATELET VOLUME 10.7 fl (7.4-10.4); MONOCYTES % 10.3 % (0.0-11.0); NEUTROPHILS % 74.5 % (39.0-77.0); PLATELET COUNT 144 10^3/UL (140-415); RED BLOOD COUNT 3.17 10^6/ul (4.20-5.40); RED CELL DISTRIBUTION WIDTH 15.1 % (11.5-14.5); WHITE BLOOD COUNT 9.2 10^3/ul (4.8-10.8)
[2017-07-30 10:59] LABS: CALCIUM 8.2 mg/dl (8.4-10.2); CREATININE 0.49 mg/dl (0.44-1.00)
[2017-07-30 14:29] VITALS: BP 147/70; RESP 19
--- NOTE | 2017-07-30 15:01 | PN ---
Date/Time of Note Date/Time of Note DATE: 07/30/17 TIME: 14:57 Assessment/Plan VTE Prophylaxis VTE Prophylaxis Intervention: other Lines/Catheters IV Catheter Type (from Rust): Peripheral IV Urinary Cath still in place: Yes Assessment/Plan Assessment/Plan 1. Anemia due to acute blood loss due to recent surgeries. - sp 2 units of PRBC transfusion 2. Chronic obstructive pulmonary disease. Continue the treatment. 3. Hypothyroidism. Continue Synthroid. 4. Dyslipidemia. Continue statin. 5. Morbid obesity. The patient was advised to lose weight. - dietary consult 6. Bipolar disorder. Stable. Continue Remeron, Seroquel,Depakote, and Tegretol. Dw Dr Castaneda/staff Exam/Review of Systems Vital Signs Vitals Vital Signs Date Time Temp Pulse Resp B/P Pulse Ox O2 Delivery O2 Flow Rate FiO2 07/30/17 14:29 98.0 103 19 147/70 94 07/29/17 15:34 Room Air 07/29/17 03:00 2.0 Intake and Output 07/29/17 07/29/17 07/30/17 15:00 23:00 07:00 Intake Total 1275 ml 875 ml 1060 ml Output Total 895 ml 350 ml 1840 ml Balance 380 ml 525 ml -780 ml Results Result Diagram: 07/30/17 1002 07/30/17 1002 Results 24 hrs Laboratory Tests Test 07/30/17 07:35 07/30/17 10:02 Lab Scanned Report BLOOD TRANSFUSION White Blood Count 9.2 Red Blood Count 3.17 #L Hemoglobin 10.1 #L Hematocrit 30.0 #L Mean Corpuscular Volume 94.6 Mean Corpuscular Hemoglobin 31.9 Mean Corpuscular Hemoglobin Concent 33.7 Red Cell Distribution Width 15.1 H Platelet Count 144 Mean Platelet Volume 10.7 H Neutrophils % 74.5 Lymphocytes % 10.8 L Monocytes % 10.3 Eosinophils % 3.9 Basophils % 0.1 Nucleated Red Blood Cells % 0.0 Neutrophils # (Manual) 6.9 Lymphocytes # 1.0 Monocytes # 1.0 H Eosinophils # 0.4 Basophils # 0.0 Nucleated Red Blood Cells # 0.0 Sodium Level 131 L Potassium Level 4.0 Chloride Level 102 Carbon Dioxide Level 24 Anion Gap 9 Blood Urea Nitrogen 8 Creatinine 0.49 Glucose Level 112 Calcium Level 8.2 L Medications Medications Current Medications Acetaminophen/ Hydrocodone Bitart ([place] (5/325)) 1 tab Q4H PRN PO PAIN LEVEL 1 -5; Start 07/26/17 at 14:00 Docusate Sodium (Colace) 100 mg BID PO Last administered on 07/30/17 09:00; Admin Dose 100 MG; Start 07/27/17 at 09:00 Hydromorphone HCl (Dilaudid WOMEN'S BASKETBALL COACH) Q4PCA IV Last administered on 07/30/17 13:24 ; Admin Dose 6 MG; Start 07/26/17 at 14:00 Naloxone HCl 0.2 mg 0.2 mg Q2M PRN IV RR 8 BREATHS/MIN OR LESS; Start 07/26/17 at 14:00 Potassium Chloride/Sodium Chloride (NS-KCl 20 Meq) 1,000 ml @ 100 mls/hr Q10H IV Last administered on 07/30/17 11:05; Admin Dose 100 MLS/HR; Start 07/26/17 at 14:00 Carbamazepine (Tegretol) 200 mg QID PO Last administered on 07/30/17 13:11; Admin Dose 200 MG; Start 07/26/17 at 21:00 Divalproex Sodium (Depakote) 500 mg TID PO Last administered on 07/30/17 13:11 ; Admin Dose 500 MG; Start 07/26/17 at 21:00 Montelukast Sodium (Singulair) 10 mg QHS PO Last administered on 07/29/17 22: 35; Admin Dose 10 MG; Start 07/26/17 at 21:00 Quetiapine Fumarate (Seroquel) 800 mg HS PO Last administered on 07/29/17 22: 35; Admin Dose 800 MG; Start 07/26/17 at 22:00 Mirtazapine (Remeron) 45 mg HS PO Last administered on 07/29/17 22:35; Admin Dose 45 MG; Start 07/26/17 at 22:00 Acetaminophen (Tylenol Tab) 650 mg Q6H PRN PO PAIN AND OR ELEVATED TEMP Last administered on 07/29/17 15:32; Admin Dose 650 MG; Start 07/29/17 at 06:00 Ketorolac Tromethamine (Toradol) 15 mg Q6H PRN IV PAIN Last administered on 07/30 01:14; Admin Dose 15 MG; Start 07/30/17 at 00:45; Stop 08/02/17 at 00:44 VITO FLEMING Jul 30, 2017 15:01
--- NOTE | 2017-07-30 17:08 | PN ---
Date/Time of Note Date/Time of Note DATE: 07/30/17 TIME: 17:07 Assessment/Plan VTE Prophylaxis VTE Prophylaxis Intervention: SCD's Lines/Catheters IV Catheter Type (from Nrsg): Peripheral IV Urinary Cath still in place: No Assessment/Plan Chief Complaint/Hosp Course S/P lumbar fusion surgery Problems: Assessment/Plan discharge planning, home healthcare RTC 2 weeks Exam/Review of Systems Vital Signs Vitals Vital Signs Date Time Temp Pulse Resp B/P Pulse Ox O2 Delivery O2 Flow Rate FiO2 07/30/17 14:29 98.0 103 19 147/70 94 07/29/17 15:34 Room Air 07/29/17 03:00 2.0 Intake and Output 07/29/17 07/29/17 07/30/17 14:59 22:59 06:59 Intake Total 1375 ml 875 ml 1060 ml Output Total 895 ml 350 ml 1840 ml Balance 480 ml 525 ml -780 ml Results Result Diagram: 07/30/17 1002 07/30/17 1002 Results 24 hrs Laboratory Tests Test 07/30/17 07:35 07/30/17 10:02 Lab Scanned Report BLOOD TRANSFUSION White Blood Count 9.2 Red Blood Count 3.17 #L Hemoglobin 10.1 #L Hematocrit 30.0 #L Mean Corpuscular Volume 94.6 Mean Corpuscular Hemoglobin 31.9 Mean Corpuscular Hemoglobin Concent 33.7 Red Cell Distribution Width 15.1 H Platelet Count 144 Mean Platelet Volume 10.7 H Neutrophils % 74.5 Lymphocytes % 10.8 L Monocytes % 10.3 Eosinophils % 3.9 Basophils % 0.1 Nucleated Red Blood Cells % 0.0 Neutrophils # (Manual) 6.9 Lymphocytes # 1.0 Monocytes # 1.0 H Eosinophils # 0.4 Basophils # 0.0 Nucleated Red Blood Cells # 0.0 Sodium Level 131 L Potassium Level 4.0 Chloride Level 102 Carbon Dioxide Level 24 Anion Gap 9 Blood Urea Nitrogen 8 Creatinine 0.49 Glucose Level 112 Calcium Level 8.2 L Medications Medications Current Medications Acetaminophen/ Hydrocodone Bitart ([place] (5/325)) 1 tab Q4H PRN PO PAIN LEVEL 1 -5; Start 07/26/17 at 14:00 Docusate Sodium (Colace) 100 mg BID PO Last administered on 07/30/17t 09:00; Admin Dose 100 MG; Start 07/27/17 at 09:00 Hydromorphone HCl (Dilaudid PSYCH SOCIAL WORKER) Q4PCA IV Last administered on 07/30/17 13:24 ; Admin Dose 6 MG; Start 07/26/17 at 14:00 Naloxone HCl 0.2 mg 0.2 mg Q2M PRN IV RR 8 BREATHS/MIN OR LESS; Start 07/26/17 at 14:00 Potassium Chloride/Sodium Chloride (NS-KCl 20 Meq) 1,000 ml @ 100 mls/hr Q10H IV Last administered on 07/30/17 11:05; Admin Dose 100 MLS/HR; Start 07/26/17 at 14:00 Carbamazepine (Tegretol) 200 mg QID PO Last administered on 07/30/17 13:11; Admin Dose 200 MG; Start 07/26/17 at 21:00 Divalproex Sodium (Depakote) 500 mg TID PO Last administered on 07/30/17 13:11 ; Admin Dose 500 MG; Start 07/26/17 at 21:00 Montelukast Sodium (Singulair) 10 mg QHS PO Last administered on 07/29/17 22: 35; Admin Dose 10 MG; Start 07/26/17 at 21:00 Quetiapine Fumarate (Seroquel) 800 mg HS PO Last administered on 07/29/17 22: 35; Admin Dose 800 MG; Start 07/26/17 at 22:00 Mirtazapine (Remeron) 45 mg HS PO Last administered on 07/29/17 22:35; Admin Dose 45 MG; Start 07/26/17 at 22:00 Acetaminophen (Tylenol Tab) 650 mg Q6H PRN PO PAIN AND OR ELEVATED TEMP Last administered on 07/29/17 15:32; Admin Dose 650 MG; Start 07/29/17 at 06:00 Ketorolac Tromethamine (Toradol) 15 mg Q6H PRN IV PAIN Last administered on 07/30 01:14; Admin Dose 15 MG; Start 07/30/17 at 00:45; Stop 08/02/17 at 00:44 STEPHEN FRANCO MD Jul 30, 2017 17:08
[2017-07-30 19:58] VITALS: BP 151/70; RESP 20
[2017-07-30] MEDS: QUETIAPINE 100 MG TAB PO SCH (21:23)
[2017-07-30] MEDS: MONTELUKAST 10 MG TAB PO SCH (21:23)
[2017-07-30] MEDS: MIRTAZAPINE 15 MG TAB PO SCH (21:23)
[2017-07-31 02:06] VITALS: BP 118/57; RESP 20
[2017-07-31] MEDS: PANTOPRAZOLE (EC) 40 MG TAB PO SCH (05:09)
[2017-07-31] MEDS: HYDROCODONE/APAP (5/325) TAB PO PRN ×2 (05:10→08:47)
[2017-07-31] MEDS: LEVOTHYROXINE 75 MCG TAB PO SCH (05:10)
[2017-07-31 05:18] LABS: BASOPHILS % 0.1 % (0.0-2.0); EOSINOPHILS # 0.3 10^3/ul (0.0-0.5); EOSINOPHILS % 2.8 % (0.0-7.0); HEMATOCRIT 28.6 % (37.0-47.0); HEMOGLOBIN 9.5 g/dl (12.0-16.0); LYMPHOCYTES % 11.1 % (15.0-51.0); MEAN CORPUSCULAR HEMOGLOBIN 31.4 pg (29.0-33.0); MEAN CORPUSCULAR HGB CONC 33.2 g/dl (32.0-37.0); MEAN CORPUSCULAR VOLUME 94.4 fl (82.0-101.0); MEAN PLATELET VOLUME 10.2 fl (7.4-10.4); MONOCYTE # 0.9 10^3/ul (0.3-0.9); MONOCYTES % 10.2 % (0.0-11.0); NEUTROPHILS % 75.2 % (39.0-77.0); PLATELET COUNT 194 10^3/UL (140-415); RED BLOOD COUNT 3.03 10^6/ul (4.20-5.40); RED CELL DISTRIBUTION WIDTH 15.3 % (11.5-14.5)
[2017-07-31 05:37] LABS: CALCIUM 8.5 mg/dl (8.4-10.2); CREATININE 0.47 mg/dl (0.44-1.00); POTASSIUM 3.6 mmol/L (3.5-5.1)
[2017-07-31] MEDS: DOCUSATE SODIUM 100 MG CAP PO SCH ×2 (08:47→20:51)
[2017-07-31] MEDS: DIVALPROEX (EC) 500 MG TAB PO SCH ×3 (08:47→20:51)
[2017-07-31] MEDS: CARBAMAZEPINE 200 MG TAB PO SCH ×4 (08:47→20:52)
--- NOTE | 2017-07-31 10:55 | PN ---
Date/Time of Note Date/Time of Note DATE: 07/31/17 TIME: 10:55 Assessment/Plan VTE Prophylaxis VTE Prophylaxis Intervention: other Lines/Catheters IV Catheter Type (from Nrs): Peripheral IV Urinary Cath still in place: Yes Reason Cath still needed: skin wounds contaminated by urine Assessment/Plan Chief Complaint/Hosp Course 1. Anemia due to acute blood loss due to recent surgeries. - sp 2 units of PRBC transfusion 2. Chronic obstructive pulmonary disease. Continue the treatment. 3. Hypothyroidism. Continue Synthroid. 4. Dyslipidemia. Continue statin. 5. Morbid obesity. The patient was advised to lose weight. - dietary consult 6. Bipolar disorder. Stable. Continue Remeron, Seroquel,Depakote, and Tegretol. Dw Dr Castaneda/staff Problems: Subjective 24 Hr Interval Summary Free Text/Dictation Patient complain of pain but was resting comfortably when I entered the room Exam/Review of Systems Vital Signs Vitals Vital Signs Date Time Temp Pulse Resp B/P Pulse Ox O2 Delivery O2 Flow Rate FiO2 07/31/17 02:06 98.4 106 20 118/57 91 07/29/17 15:34 Room Air 07/29/17 03:00 2.0 Intake and Output 07/30/17 07/30/17 07/31/17 15:00 23:00 07:00 Intake Total 1000 ml 1340 ml 400 ml Output Total 1900 ml 1600 ml Balance 1000 ml -560 ml -1200 ml Exam Constitutional: well developed Head: atraumatic, normocephalic Neck: supple Respiratory: diminished breath sounds Cardiovascular: regular rate and rhythm Gastrointestinal: non-tender, soft Extremities: normal pulses Results Result Diagram: 07/31/17 0434 07/31/17 0434 Results 24 hrs Laboratory Tests Test 07/31/17 04:34 07/31/17 08:04 White Blood Count 9.0 Red Blood Count 3.03 L Hemoglobin 9.5 L Hematocrit 28.6 L Mean Corpuscular Volume 94.4 Mean Corpuscular Hemoglobin 31.4 Mean Corpuscular Hemoglobin Concent 33.2 Red Cell Distribution Width 15.3 H Platelet Count 194 # Mean Platelet Volume 10.2 Neutrophils % 75.2 Lymphocytes % 11.1 L Monocytes % 10.2 Eosinophils % 2.8 Basophils % 0.1 Nucleated Red Blood Cells % 0.0 Neutrophils # (Manual) 6.7 Lymphocytes # 1.0 Monocytes # 0.9 Eosinophils # 0.3 Basophils # 0.0 Nucleated Red Blood Cells # 0.0 Sodium Level 135 Potassium Level 3.6 Chloride Level 103 Carbon Dioxide Level 25 Anion Gap 11 Blood Urea Nitrogen 7 Creatinine 0.47 Glucose Level 141 Calcium Level 8.5 Lab Scanned Report BLOOD TRANSFUSION Medications Medications Current Medications Acetaminophen/ Hydrocodone Bitart ([place] (5/325)) 1 tab Q4H PRN PO PAIN LEVEL 1 -5 Last administered on 07/31/17 08:47; Admin Dose 1 TAB; Start 07/26/17 at 14: 00 Docusate Sodium (Colace) 100 mg BID PO Last administered on 07/31/17 08:47; Admin Dose 100 MG; Start 07/27/17 at 09:00 Hydromorphone HCl (Dilaudid STAGE TECHNICIAN) Q4PCA IV Last administered on 07/30/17 22:00 ; Admin Dose 6 MG; Start 07/26/17 at 14:00 Naloxone HCl 0.2 mg 0.2 mg Q2M PRN IV RR 8 BREATHS/MIN OR LESS; Start 07/26/17 at 14:00 Potassium Chloride/Sodium Chloride (NS-KCl 20 Meq) 1,000 ml @ 100 mls/hr Q10H IV Last administered on 07/30/17 21:42; Admin Dose 100 MLS/HR; Start 07/26/17 at 14:00 Carbamazepine (Tegretol) 200 mg QID PO Last administered on 07/31/17 08:47; Admin Dose 200 MG; Start 07/26/17 at 21:00 Divalproex Sodium (Depakote) 500 mg TID PO Last administered on 07/31/17 08:47 ; Admin Dose 500 MG; Start 07/26/17 at 21:00 Montelukast Sodium (Singulair) 10 mg QHS PO Last administered on 07/30/17 21:23 ; Admin Dose 10 MG; Start 07/26/17 at 21:00 Quetiapine Fumarate (Seroquel) 800 mg HS PO Last administered on 07/30/17 21:23 ; Admin Dose 800 MG; Start 07/26/17 at 22:00 Mirtazapine (Remeron) 45 mg HS PO Last administered on 07/30/17 21:23; Admin Dose 45 MG; Start 07/26/17 at 22:00 Acetaminophen (Tylenol Tab) 650 mg Q6H PRN PO PAIN AND OR ELEVATED TEMP Last administered on 07/29/17t 15:32; Admin Dose 650 MG; Start 07/29/17 at 06:00 JENS CHACON Jul 31, 2017 10:55
[2017-07-31] MEDS: OXYCODONE/ACETAMINOPHEN (10/325) TAB PO PRN ×3 (12:33→20:51)
[2017-07-31 14:00] VITALS: BP 154/72; RESP 20
[2017-07-31] MEDS: NS + KCL 20 MEQ 1,000 ML IV SCH (14:00)
[2017-07-31 19:47] VITALS: BP 127/70; RESP 20
[2017-07-31] MEDS: MIRTAZAPINE 15 MG TAB PO SCH (20:51)
[2017-07-31] MEDS: LACTULOSE 30ML CUP PO SCH (20:52)
[2017-07-31] MEDS: QUETIAPINE 100 MG TAB PO SCH (20:52)
[2017-07-31] MEDS: MONTELUKAST 10 MG TAB PO SCH (20:52)
[2017-08-01] MEDS: OXYCODONE/ACETAMINOPHEN (10/325) TAB PO PRN ×4 (00:35→14:18)
[2017-08-01 02:00] VITALS: BP 126/72; RESP 18
[2017-08-01] MEDS: LEVOTHYROXINE 75 MCG TAB PO SCH (05:39)
[2017-08-01] MEDS: PANTOPRAZOLE (EC) 40 MG TAB PO SCH (05:54)
[2017-08-01 08:22] VITALS: BP 103/59; RESP 20
[2017-08-01] MEDS: DIVALPROEX (EC) 500 MG TAB PO SCH ×3 (08:28→20:59)
[2017-08-01] MEDS: DOCUSATE SODIUM 100 MG CAP PO SCH ×2 (08:29→20:56)
[2017-08-01] MEDS: CARBAMAZEPINE 200 MG TAB PO SCH ×4 (08:29→20:57)
[2017-08-01] MEDS: NS + KCL 20 MEQ 1,000 ML IV SCH ×3 (10:00→18:35)
--- NOTE | 2017-08-01 11:40 | PN ---
Date/Time of Note Date/Time of Note DATE: 08/01/17 TIME: 11:39 Assessment/Plan VTE Prophylaxis VTE Prophylaxis Intervention: other Lines/Catheters IV Catheter Type (from Nrs): Peripheral IV Urinary Cath still in place: Yes Reason Cath still needed: skin wounds contaminated by urine Assessment/Plan Chief Complaint/Hosp Course 1. Anemia due to acute blood loss due to recent surgeries. - sp 2 units of PRBC transfusion 2. Chronic obstructive pulmonary disease. Continue the treatment. 3. Hypothyroidism. Continue Synthroid. 4. Dyslipidemia. Continue statin. 5. Morbid obesity. The patient was advised to lose weight. - dietary consult 6. Bipolar disorder. Stable. Continue Remeron, Seroquel,Depakote, and Tegretol. Dw Dr Castaneda/staff Problems: Subjective 24 Hr Interval Summary Free Text/Dictation Patient continues to have significant amount of pain, worse when she tries to ambulate Exam/Review of Systems Vital Signs Vitals Vital Signs Date Time Temp Pulse Resp B/P Pulse Ox O2 Delivery O2 Flow Rate FiO2 08/01/17 08:22 98.1 81 20 103/59 98 07/29/17 15:34 Room Air 07/29/17 03:00 2.0 Intake and Output 07/31/17 07/31/17 08/01/17 15:00 23:00 07:00 Intake Total 940 ml 350 ml Output Total 1300 ml 1400 ml Balance -360 ml -1050 ml Exam Constitutional: well developed Head: atraumatic, normocephalic Neck: supple Respiratory: diminished breath sounds Cardiovascular: regular rate and rhythm Gastrointestinal: non-tender, soft Extremities: normal pulses Results Result Diagram: 07/31/17 0434 07/31/17 0434 Medications Medications Current Medications Docusate Sodium (Colace) 100 mg BID PO Last administered on 08/01/17 08:29; Admin Dose 100 MG; Start 07/27/17 at 09:00 Naloxone HCl 0.2 mg 0.2 mg Q2M PRN IV RR 8 BREATHS/MIN OR LESS; Start 07/26/17 at 14:00 Potassium Chloride/Sodium Chloride (NS-KCl 20 Meq) 1,000 ml @ 100 mls/hr Q10H IV Last administered on 07/30/17 21:42; Admin Dose 100 MLS/HR; Start 07/26/17 at 14:00 Carbamazepine (Tegretol) 200 mg QID PO Last administered on 08/01/17 08:29; Admin Dose 200 MG; Start 07/26/17 at 21:00 Divalproex Sodium (Depakote) 500 mg TID PO Last administered on 08/01/17 08:28 ; Admin Dose 500 MG; Start 07/26/17 at 21:00 Montelukast Sodium (Singulair) 10 mg QHS PO Last administered on 07/31/17 20:52 ; Admin Dose 10 MG; Start 07/26/17 at 21:00 Quetiapine Fumarate (Seroquel) 800 mg HS PO Last administered on 07/31/17 20:52 ; Admin Dose 800 MG; Start 07/26/17 at 22:00 Mirtazapine (Remeron) 45 mg HS PO Last administered on 07/31/17 20:51; Admin Dose 45 MG; Start 07/26/17 at 22:00 Acetaminophen (Tylenol Tab) 650 mg Q6H PRN PO PAIN AND OR ELEVATED TEMP Last administered on 07/29/17 15:32; Admin Dose 650 MG; Start 07/29/17 at 06:00 Oxycodone/ Acetaminophen (Endocet (10/ 325)) 1 tab Q4H PRN PO PAIN Last administered on 08/01/17 09:38; Admin Dose 1 TAB; Start 07/31/17 at 11:30 Lactulose (Enulose) 30 gm QHS PO Last administered on 07/31/17 20:52; Admin Dose 30 GM; Start 07/31/17 at 21:00 JENS CHACON Aug 01, 2017 11:40
[2017-08-01 19:57] VITALS: BP 126/70; RESP 18
[2017-08-01] MEDS: QUETIAPINE 100 MG TAB PO SCH (20:54)
[2017-08-01] MEDS: MONTELUKAST 10 MG TAB PO SCH (20:54)
[2017-08-01] MEDS: MIRTAZAPINE 15 MG TAB PO SCH (20:55)
[2017-08-01] MEDS: LACTULOSE 30ML CUP PO SCH (20:56)
[2017-08-02] MEDS: OXYCODONE/ACETAMINOPHEN (10/325) TAB PO PRN ×3 (01:00→10:23)
[2017-08-02 02:06] VITALS: BP 149/71; RESP 18
[2017-08-02] MEDS: NS + KCL 20 MEQ 1,000 ML IV SCH (04:39)
[2017-08-02] MEDS: LEVOTHYROXINE 75 MCG TAB PO SCH (06:24)
[2017-08-02] MEDS: PANTOPRAZOLE (EC) 40 MG TAB PO SCH (06:24)
[2017-08-02 07:47] VITALS: BP 143/67; RESP 19
[2017-08-02] MEDS: CARBAMAZEPINE 200 MG TAB PO SCH ×4 (08:12→20:46)
[2017-08-02] MEDS: DOCUSATE SODIUM 100 MG CAP PO SCH ×2 (08:12→20:44)
[2017-08-02] MEDS: DIVALPROEX (EC) 500 MG TAB PO SCH ×3 (08:12→20:45)
--- NOTE | 2017-08-02 11:01 | PN ---
Date/Time of Note Date/Time of Note DATE: 08/02/17 TIME: 11:00 Assessment/Plan VTE Prophylaxis VTE Prophylaxis Intervention: other Lines/Catheters IV Catheter Type (from Nrsg): Peripheral IV Urinary Cath still in place: Yes Reason Cath still needed: skin wounds contaminated by urine Assessment/Plan Chief Complaint/Hosp Course 1. Anemia due to acute blood loss due to recent surgeries. - sp 2 units of PRBC transfusion 2. Chronic obstructive pulmonary disease. Continue the treatment. 3. Hypothyroidism. Continue Synthroid. 4. Dyslipidemia. Continue statin. 5. Morbid obesity. The patient was advised to lose weight. - dietary consult 6. Bipolar disorder. Stable. Continue Remeron, Seroquel,Depakote, and Tegretol. Dw Dr Castaneda/staff Problems: Subjective 24 Hr Interval Summary Free Text/Dictation Patient complain of pain Exam/Review of Systems Vital Signs Vitals Vital Signs Date Time Temp Pulse Resp B/P Pulse Ox O2 Delivery O2 Flow Rate FiO2 08/02/17 07:47 98.0 80 19 143/67 96 07/29/17 15:34 Room Air Intake and Output 08/01/17 08/01/17 08/02/17 15:00 23:00 07:00 Intake Total 670 ml 1520 ml Output Total 550 ml 800 ml Balance 120 ml 720 ml Exam Constitutional: obese, well developed Head: atraumatic, normocephalic Neck: supple Respiratory: clear to auscultation Cardiovascular: regular rate and rhythm Gastrointestinal: non-tender, soft Extremities: normal pulses Results Result Diagram: 07/31/17 0434 07/31/17 0434 Medications Medications Current Medications Docusate Sodium (Colace) 100 mg BID PO Last administered on 08/02/17 08:12; Admin Dose 100 MG; Start 07/27/17 at 09:00 Naloxone HCl 0.2 mg 0.2 mg Q2M PRN IV RR 8 BREATHS/MIN OR LESS; Start 07/26/17 at 14:00 Potassium Chloride/Sodium Chloride (NS-KCl 20 Meq) 1,000 ml @ 100 mls/hr Q10H IV Last administered on 08/02/17 04:39; Admin Dose 100 MLS/HR; Start 07/26/17 at 14:00 Carbamazepine (Tegretol) 200 mg QID PO Last administered on 08/02/17 08:12; Admin Dose 200 MG; Start 07/26/17 at 21:00 Divalproex Sodium (Depakote) 500 mg TID PO Last administered on 08/02/17 08:12 ; Admin Dose 500 MG; Start 07/26/17 at 21:00 Montelukast Sodium (Singulair) 10 mg QHS PO Last administered on 08/01/17 20:54 ; Admin Dose 10 MG; Start 07/26/17 at 21:00 Quetiapine Fumarate (Seroquel) 800 mg HS PO Last administered on 08/01/17 20:54 ; Admin Dose 800 MG; Start 07/26/17 at 22:00 Mirtazapine (Remeron) 45 mg HS PO Last administered on 08/01/17 20:55; Admin Dose 45 MG; Start 07/26/17 at 22:00 Acetaminophen (Tylenol Tab) 650 mg Q6H PRN PO PAIN AND OR ELEVATED TEMP Last administered on 07/29/17 15:32; Admin Dose 650 MG; Start 07/29/17 at 06:00 Oxycodone/ Acetaminophen (Endocet (10/ 325)) 1 tab Q4H PRN PO PAIN Last administered on 08/02/17 10:23; Admin Dose 1 TAB; Start 07/31/17 at 11:30 Lactulose (Enulose) 30 gm QHS PO Last administered on 08/01/17 20:56; Admin Dose 30 GM; Start 07/31/17 at 21:00 JENS CHACON Aug 02, 2017 11:01
[2017-08-02] MEDS: HYDROmorphONE 2 MG TAB PO PRN ×2 (13:55→19:57)
[2017-08-02 20:17] VITALS: BP 146/72; RESP 16
[2017-08-02] MEDS: QUETIAPINE 100 MG TAB PO SCH (20:45)
[2017-08-02] MEDS: MIRTAZAPINE 15 MG TAB PO SCH (20:45)
[2017-08-02] MEDS: LACTULOSE 30ML CUP PO SCH (20:45)
[2017-08-02] MEDS: MONTELUKAST 10 MG TAB PO SCH (20:45)
[2017-08-03] MEDS: OXYCODONE/ACETAMINOPHEN (10/325) TAB PO PRN ×3 (01:27→14:11)
[2017-08-03 02:07] VITALS: BP 141/68; RESP 16
[2017-08-03] MEDS: HYDROmorphONE 2 MG TAB PO PRN ×4 (04:20→21:38)
[2017-08-03] MEDS: LEVOTHYROXINE 75 MCG TAB PO SCH (06:02)
[2017-08-03] MEDS: PANTOPRAZOLE (EC) 40 MG TAB PO SCH (06:02)
[2017-08-03 07:48] VITALS: BP 136/63; RESP 17
[2017-08-03] MEDS: DOCUSATE SODIUM 100 MG CAP PO SCH ×2 (08:58→21:35)
[2017-08-03] MEDS: DIVALPROEX (EC) 500 MG TAB PO SCH ×3 (08:59→21:35)
[2017-08-03] MEDS: CARBAMAZEPINE 200 MG TAB PO SCH ×4 (08:59→21:36)
[2017-08-03 14:30] VITALS: BP 143/67; RESP 18
[2017-08-03 19:15] VITALS: BP 138/63; RESP 20
[2017-08-03] MEDS: LACTULOSE 30ML CUP PO SCH (21:00)
[2017-08-03] MEDS: MIRTAZAPINE 15 MG TAB PO SCH (21:36)
[2017-08-03] MEDS: MONTELUKAST 10 MG TAB PO SCH (21:36)
[2017-08-03] MEDS: QUETIAPINE 100 MG TAB PO SCH (21:38)
[2017-08-04] MEDS: HYDROmorphONE 2 MG TAB PO PRN ×5 (01:41→18:02)
--- NOTE | 2017-08-04 03:27 | PN ---
DATE: 08/03/2017 SUBJECTIVE DATA: The patient did participate in physical therapy and was ambulating better although she still has significant postoperative pain. The patient had received p.o. Dilaudid 2 mg but was ineffective. Therefore, the dose will be increased to 4 mg q.4 hours p.r.n. I will discontinue Percocet for now. The patient denies any chest pain, no active wheezing. OBJECTIVE DATA: GENERAL: Patient conscious, awake, alert. VITAL SIGNS: Blood pressure 143/67, pulse is 89, respiration 18, temperature 98, O2 sat 98 on room air. NECK: Neck. No mass. No JVD. CHEST: Chest fairly clear. CARDIAC: S1, S2 normal. No murmur. ABDOMEN: Soft. EXTREMITIES: No leg edema. NEURO: The patient is awake, alert, fairly oriented. IMPRESSION: 1. disc narrowing and spondylosis lumbar spine. Status post surgery. 2. Chronic obstructive pulmonary disease. 3. Hypothyroidism. 4. Bipolar disorder. PLAN: Continue current medication. The patient also had acute blood loss anemia due to recent surgery. The last hemoglobin was 9.5, will add iron sulfate. Dictated By: Brandon White MD /[email or web address] /Document#: [id number]
[2017-08-04] MEDS: PANTOPRAZOLE (EC) 40 MG TAB PO SCH (06:18)
[2017-08-04] MEDS: LEVOTHYROXINE 75 MCG TAB PO SCH (06:18)
[2017-08-04 08:03] VITALS: BP 124/64; RESP 20
[2017-08-04] MEDS: DOCUSATE SODIUM 100 MG CAP PO SCH (08:42)
[2017-08-04] MEDS: DIVALPROEX (EC) 500 MG TAB PO SCH ×2 (08:42→13:23)
[2017-08-04] MEDS: CARBAMAZEPINE 200 MG TAB PO SCH ×3 (08:42→18:02)
[2017-08-04] MEDS: ACETAMINOPHEN 325 MG TAB PO PRN (08:47)
[2017-08-04] MEDS ORDERED: FERROUS SULFATE (EC) 325 MG TAB PO SCH (09:00)
[2017-08-04 14:32] VITALS: BP 122/60; RESP 20
--- NOTE | 2017-08-04 15:03 | PN ---
Date/Time of Note Date/Time of Note DATE: 08/04/17 TIME: 15:00 Assessment/Plan VTE Prophylaxis VTE Prophylaxis Intervention: other Lines/Catheters IV Catheter Type (from Nrs): Saline Lock Urinary Cath still in place: No Assessment/Plan Assessment/Plan 1. disc narrowing and spondylosis lumbar spine.- Status post surgery. 2. Chronic obstructive pulmonary disease. 3. Hypothyroidism. 4. Bipolar disorder. Subjective 24 Hr Interval Summary Free Text/Dictation ambulate dwith PT x 1,, ,, asking for pain med, dw staff Respiratory: no complaints Cardiovascular: no complaints Gastrointestinal: no complaints Genitourinary: no complaints Musculoskeletal: back pain Exam/Review of Systems Vital Signs Vitals Vital Signs Date Time Temp Pulse Resp B/P Pulse Ox O2 Delivery O2 Flow Rate FiO2 08/04/17 14:32 98.2 77 20 122/60 94 Intake and Output 08/03/17 08/03/17 08/04/17 15:00 23:00 07:00 Intake Total 1160 ml 720 ml Balance 1160 ml 720 ml Exam Constitutional: alert Respiratory: clear to auscultation, normal air movement Cardiovascular: nl pulses, regular rate and rhythm Gastrointestinal: non-tender, soft Extremities: normal pulses Results Result Diagram: 07/31/17 0434 07/31/17 0434 Medications Medications Current Medications Docusate Sodium (Colace) 100 mg BID PO Last administered on 08/04/17 08:42; Admin Dose 100 MG; Start 07/27/17 at 09:00 Naloxone HCl (Narcan) 0.2 mg Q2M PRN IV RR 8 BREATHS/MIN OR LESS; Start at 14:00 Carbamazepine (Tegretol) 200 mg QID PO Last administered on 08/04/17 13:23; Admin Dose 200 MG; Start 07/26/17 at 21:00 Divalproex Sodium (Depakote) 500 mg TID PO Last administered on 08/04/17 13:23 ; Admin Dose 500 MG; Start 07/26/17 at 21:00 Montelukast Sodium (Singulair) 10 mg QHS PO Last administered on 08/03/17 21:36 ; Admin Dose 10 MG; Start 07/26/17 at 21:00 Quetiapine Fumarate (Seroquel) 800 mg HS PO Last administered on 08/03/17 21:38 ; Admin Dose 800 MG; Start 07/26/17 at 22:00 Mirtazapine (Remeron) 45 mg HS PO Last administered on 08/03/17 21:36; Admin Dose 45 MG; Start 07/26/17 at 22:00 Acetaminophen (Tylenol Tab) 650 mg Q6H PRN PO PAIN AND OR ELEVATED TEMP Last administered on 08/04/17 08:47; Admin Dose 650 MG; Start 07/29/17 at 06:00 Lactulose (Enulose) 30 gm QHS PO Last administered on 08/02/17 20:45; Admin Dose 30 GM; Start 07/31/17 at 21:00 Hydromorphone HCl (Dilaudid) 4 mg Q4H PRN PO pain Last administered on 14:00; Admin Dose 4 MG; Start 08/03/17 at 21:00 Ferrous Sulfate (Ferrous Sulfate (Ec)) 325 mg DAILY PO Last administered on 08/04 08:42; Admin Dose 325 MG; Start 08/04/17 at 09:00 VITO FLEMING Aug 04, 2017 15:03
--- NOTE | 2017-08-04 16:19 | DS ---
Date/Time of Note Date/Time of Note DATE: 08/04/17 TIME: 16:19 Discharge Summary Admission/Discharge Info Admit Date/Time Jul 26, 2017 at 09:07 Discharge Date/Time Hospital Course 1. Anemia due to acute blood loss due to recent surgeries. - sp 2 units of PRBC transfusion 2. Chronic obstructive pulmonary disease. Continue the treatment. 3. Hypothyroidism. Continue Synthroid. 4. Dyslipidemia. Continue statin. 5. Morbid obesity. The patient was advised to lose weight. - dietary consult 6. Bipolar disorder. Stable. Continue Remeron, Seroquel,Depakote, and Tegretol. Dw Dr Castaneda/staff Home Meds Reported Medications Acetaminophen* (Acetaminophen*) 650 Mg Tablet, 650 MG PO Q4 Y for PAIN AND OR ELEVATED TEMP, #30 TAB 07/26/17 Sodium Chloride* (Sodium Chloride*) 1 Gm Tablet, 1 GM PO TID, TAB 07/26/17 Montelukast Sodium* (Singulair*) 10 Mg Tablet, 10 MG PO QHS, #30 TAB 07/26/17 Quetiapine Fumarate* (Seroquel*) 400 Mg Tablet, 800 MG PO HS, TAB 07/26/17 Guaifenesin-Dextromethorphan* (Robitussin* DM) 100MG/10MG/5ML Syrup, 10 ML PO Q4H Y for COUGH, ML 07/26/17 Mirtazapine* (Remeron*) 45 Mg Tablet, 45 MG PO HS, TAB 07/26/17 Oxycodone HCl/Acetaminophen (Percocet 10-325 mg Tablet) 1 Each Tablet, 1 EACH PO Q4 Y for SEVERE PAIN LEVEL 7-10, TAB 07/26/17 Pantoprazole* (Pantoprazole*) 40 Mg Tablet.dr, 40 MG PO AC BREAKFAST, TAB 07/26/17 Magnesium Hydroxide* (Milk Of Magnesia*) 400 Mg/5 Ml Oral.susp, 30 ML PO Q24H Y for CONSTIPATION, ML 07/26/17 Losartan Potassium* (Losartan Potassium*) 100 Mg Tablet, 100 MG PO DAILY, TAB 07/26/17 Levothyroxine Sodium* (Levothyroxine Sodium*) 75 Mcg Tablet, 75 MCG PO BEFORE BREAKFAST, #30 TAB 07/26/17 Lactulose* (Lactulose*) 20 Gm/30 Ml Solution, 20 GM PO TID, ML 07/26/17 Lactobacillus Acidophilus* (Lactinex*) 1 Tab Chew, 1 TAB PO DAILY, TAB 07/26/17 Ibuprofen* (Ibuprofen*) 600 Mg Tablet, 600 MG PO Q6H Y for PAIN, TAB 07/26/17 Venlafaxine Hcl* (Effexor XR*) 150 Mg Cap.sr.24h, 150 MG PO DAILY, CAP 07/26/17 Ipratropium-Albuterol (Ipratropium-Albuterol) 0.5-3 Mg/3 Ml Ampul.neb, 3 ML INHALATION Q6 Y for WHEEZING AND SOB, #30 VIAL 07/26/17 Docusate Sodium* (Colace*) 250 Mg Capsule, 250 MG PO BID, #60 CAP 07/26/17 Divalproex Sodium* (Depakote*) 500 Mg Tablet.dr, 500 MG PO TID, #90 TAB 07/26/17 Carbamazepine* (Carbamazepine*) 100 Mg Tab.chew, 200 MG PO QID, #60 TAB.CHEW 07/26/17 Benztropine Mesylate* (Benztropine Mesylate*) 0.5 Mg Tablet, 0.5 MG PO BID, TAB 07/26/17 Baclofen* (Baclofen*) 10 Mg Tablet, 10 MG PO TID, TAB 07/26/17 Atorvastatin Calcium* (Atorvastatin Calcium*) 20 Mg Tablet, 20 MG PO QHS, #30 TAB 07/26/17 Aspirin* (Aspirin* Chew) 81 Mg Tab.chew, 81 MG PO DAILY, TAB.CHEW 07/26/17 Dextran 70/Hypromellose (Artificials Tears Drops) 30 Ml Drops, 1 DROP BOTH EYES BID, BOTTLE 07/26/17 Primary Care Provider Not On Staff Doctor VITO FLEMING Aug 04, 2017 16:19
--- NOTE | 2017-08-04 17:13 | PDOCDIS ---
Discharge Instructions HOME CARE INSTRUCTIONS: Special Diet: REGULAR VITO FLEMING Aug 04, 2017 17:13
== END 2017-08-04 20:33 | DRG 460 ==
LOC: REC 09:07 → MS1 18:30 → ICU 07-28 21:08 → MS1 07-29 15:03
PROVIDERS: ADMIT Neurological Surgery; ATTEND Neurological Surgery
PROC: 0SG10J1 Fusion of 2 or more Lumbar Vertebral Joints with Synthetic Substitute, Posterior Approach, Posterior Column, Open Approach (ICD-10-PCS; 2017-07-26)
PROC: 07BD0ZX Excision of Aortic Lymphatic, Open Approach, Diagnostic (ICD-10-PCS; 2017-07-26)
PROC: 0WJH0ZZ Inspection of Retroperitoneum, Open Approach (ICD-10-PCS; 2017-07-26)
PROC: 0MBC0ZZ Excision of Upper Spine Bursa and Ligament, Open Approach (ICD-10-PCS; 2017-07-26)
PROC: 30233N1 Transfusion of Nonautologous Red Blood Cells into Peripheral Vein, Percutaneous Approach (ICD-10-PCS; 2017-07-26)
PROC: 0SG30J1 Fusion of Lumbosacral Joint with Synthetic Substitute, Posterior Approach, Posterior Column, Open Approach (ICD-10-PCS; principal; 2017-07-26 11:30)
DX: M47.26 Other spondylosis with radiculopathy, lumbar region (principal); D62 Acute posthemorrhagic anemia; I10 Essential (primary) hypertension; M51.17 Intervertebral disc disorders with radiculopathy, lumbosacral region; K66.0 Peritoneal adhesions (postprocedural) (postinfection); M47.27 Other spondylosis with radiculopathy, lumbosacral region; M71.38 Other bursal cyst, other site; E88.2 Lipomatosis, not elsewhere classified; E66.01 Morbid (severe) obesity due to excess calories; J44.9 Chronic obstructive pulmonary disease, unspecified; F31.9 Bipolar disorder, unspecified; R09.89 Other specified symptoms and signs involving the circulatory and respiratory systems; E78.5 Hyperlipidemia, unspecified; E03.9 Hypothyroidism, unspecified; G40.909 Epilepsy, unspecified, not intractable, without status epilepticus; K21.9 Gastro-esophageal reflux disease without esophagitis; Z68.39 Body mass index [BMI] 39.0-39.9, adult
CPT/HCPCS: 36430; 72020; 72131; 80048; 85025; 85610; 85730; 86850; 86900; 86901; 86920; 87086; 88307; 93005; 97116; 97162; 97530; J0131; J0360; J0690; J1100; J1170; J1644; J1885; J2175; J2250; J2370; J2405; J2710; J2765; J2795; J3010; J3480; J7040; J7999; L0639; P9016

== ENCOUNTER 2017-09-07 15:12 | Inpatient (IN) | END 2017-10-07 17:50 | disposition home or self-care (01) | DRG 863 | DX: T81.4XXA Infection following a procedure, initial encounter (principal); Z68.41 Body mass index [BMI] 40.0-44.9, adult; L03.311 Cellulitis of abdominal wall; E66.01 Morbid (severe) obesity due to excess calories; M41.9 Scoliosis, unspecified; I10 Essential (primary) hypertension; N39.0 Urinary tract infection, site not specified; D64.9 Anemia, unspecified; B36.8 Other specified superficial mycoses; J44.9 Chronic obstructive pulmonary disease, unspecified; F31.9 Bipolar disorder, unspecified; F17.290 Nicotine dependence, other tobacco product, uncomplicated; E03.9 Hypothyroidism, unspecified; I88.9 Nonspecific lymphadenitis, unspecified; K42.9 Umbilical hernia without obstruction or gangrene; M25.512 Pain in left shoulder; R20.2 Paresthesia of skin; B96.20 Unspecified Escherichia coli [E. coli] as the cause of diseases classified elsewhere; E65 Localized adiposity ==